=== PATIENT | male | born 1945 | race Caucasian/White ===

== ENCOUNTER 2022-04-24 16:22 | Observation (INO) | payer MEDICARE ==
[2022-04-24 16:59] LABS: Anisocytosis Slight; Basophils # (A) 0.1 k/uL (0-0.2); Basophils % (A) 1 %; Eosinophils # (A) 0.1 k/uL (0-0.7); Eosinophils % (A) 1 %; HCT 39.5 % (39.0-53.0); HGB 12.9 gm/dL (13.0-17.5); Lymphocytes # (A) 2.1 k/uL (1.0-4.8); Lymphocytes % (A) 25 %; MCH 34.7 pg (25.0-35.0); MCHC 32.6 g/dL (31.0-37.0); MCV 106.5 fL (80.0-100.0); Macrocytosis Moderate; Mean Platelet Volume 8.2; Monocytes # (A) 0.5 k/uL (0-1.0); Monocytes % (A) 5 %; Neutrophils # (A) 5.4 k/uL (1.3-7.7); Neutrophils % (A) 64 %; Platelet Count 279 k/uL (150-450); RBC 3.71 m/uL (4.30-5.90); RDW 16.3 % (11.5-15.5); WBC 8.4 k/uL (3.8-10.6)
[2022-04-24 17:08] LABS: Albumin 4.5 g/dL (3.5-5.0); Calcium 9.5 mg/dL (8.4-10.2); Potassium 4.2 mmol/L (3.5-5.1); Total Bilirubin 0.7 mg/dL (0.2-1.3); Total Protein 6.9 g/dL (6.3-8.2)
--- NOTE | 2022-04-24 17:11 | XR ---
EXAMINATION: XR chest 2V DATE AND TIME: 04/24/2022 5:03 PM CLINICAL INDICATION: chest pain TECHNIQUE: PA and lateral COMPARISON: None FINDINGS: The lungs are clear. The pleural spaces are negative. The cardiac silhouette is not enlarged. The remainder of the mediastinal silhouette is unremarkable. The skeletal structures and soft tissues are negative for acute findings. IMPRESSION: NO ACUTE PROCESS.
[2022-04-24 17:15] LABS: Partial Thromboplastin Time 25.2 sec (22.0-30.0); Prothrombin Time 10.5 sec (9.0-12.0)
--- NOTE | 2022-04-24 21:42 | ED ---
Chest Pain HPI - General Chief Complaint: Chest Pain Stated Complaint: Chest pain Time Seen by Provider: 04/24/22 16:43 Source: patient, family, RN notes reviewed Mode of arrival: ambulatory Limitations: no limitations - History of Present Illness Initial Comments: 77-year-old male with a history of heart disease with 2 stents one in 2016 who presents with complaints of intermittent chest tightness anteriorly for past 3 days last episode lasted about 2 hours. He did not take nitroglycerin does have at home. He denies any cough fevers chills he does get a increased heart rate with this. It pain was moderate in severity he describes the later is coming in waves. He is not sure if it feels similar to his previous episodes that he had before stenting. MD Complaint: chest pain Review of Systems ROS Statement: Those systems with pertinent positive or pertinent negative responses have been documented in the HPI. ROS Other: All systems not noted in ROS Statement are negative. EKG Findings - EKG Results: EKG: interpreted by PEDRO, sinus rhythm (Normal sinus rhythm 81. Interval 181 QRS duration 94 QT/QTC 372/[address]-T wave changes no old for comparison at this time.) Past Medical History Past Medical History: Hypertension Additional Past Medical History / Comment(s): Esophegal spasms History of Any Multi-Drug Resistant Organisms: None Reported Past Surgical History: Cholecystectomy Additional Past Surgical History / Comment(s): Cardiac Stents. hernia Past Psychological History: No Psychological Hx Reported Smoking Status: Never smoker Past Alcohol Use History: None Reported Past Drug Use History: None Reported General Exam - General Exam Comments Initial Comments: This is a well-developed well-nourished awake alert oriented 4 male Limitations: no limitations General appearance: alert, in no apparent distress Head exam: Present: atraumatic, normocephalic, normal inspection Eye exam: Present: normal appearance, PERRL, EOMI. Absent: scleral icterus, conjunctival injection, periorbital swelling ENT exam: Present: normal exam, mucous membranes moist Neck exam: Present: normal inspection, full ROM, other (no stridor JVD or bruits). Absent: tenderness, meningismus, lymphadenopathy Respiratory exam: Present: normal lung sounds bilaterally. Absent: respiratory distress, wheezes, rales, rhonchi, stridor Cardiovascular Exam: Present: regular rate, normal rhythm, normal heart sounds. Absent: systolic murmur, diastolic murmur, rubs, gallop, clicks GI/Abdominal exam: Present: soft, normal bowel sounds. Absent: distended, tenderness, guarding, rebound, rigid Extremities exam: Present: normal inspection, full ROM, normal capillary refill. Absent: tenderness, pedal edema, joint swelling, calf tenderness Back exam: Present: normal inspection Neurological exam: Present: alert, oriented X3, CN II-XII intact Psychiatric exam: Present: normal affect, normal mood Skin exam: Present: warm, dry, intact, normal color. Absent: rash Course Vital Signs 04/24/22 16:31 Temperature 98.2 F Pulse Rate 94 Respiratory 20 Rate Blood Pressure 145/71 O2 Sat by Pulse 99 Oximetry - Reevaluation(s) Reevaluation #1: 04/24/22 21:43 Patient did state that after his last catheterization was a partial blockage of one of the arteries it was unreachable for stenting. Reevaluation #2: 04/24/22 21:45 Holiness be made to try to get old charting from the [facility] or the tenting was done Chest Pain MDM - MDM Imaging reviewed no acute findings I did discuss findings with the patient's sister was present also with Dr. Cartwright patient will be admitted with cardiology consultation. The presentation appears be consistent with unstable angina Disposition Clinical Impression: Chest pain, Unstable angina Disposition: ADMITTED IP TO THIS [facility] Condition: Stable Referrals: Nonstaff,Physician [Primary Care Provider] - 1-2 days Decision Date: 04/24/22 Decision Time: 21:30
[2022-04-24] MEDS ORDERED: NITROGLYCERIN SL TABS 0.4 MG TAB SUBLINGUAL PRN (22:08)
[2022-04-24] MEDS ORDERED: HEPARIN SODIUM 1,000 UN/ML (10ML VL) IV ONE (22:08)
[2022-04-24] MEDS ORDERED: HEPARIN SOD,PORK IN 0.45% NACL 25,000 UNIT in 0.45% NACL 1 250ML.BAG IV SCH (22:15)
[2022-04-24] MEDS ORDERED: ALBUTEROL NEBULIZED 2.5 MG/3 ML INHALATION PRN (22:38)
[2022-04-24] MEDS ORDERED: ZOLPIDEM 5 MG TAB PO PRN (23:11)
[2022-04-25] MEDS ORDERED: NITROGLYCERIN OINT 1 INCH/GM PACKET TOPICAL SCH
--- NOTE | 2022-04-25 05:56 | P.HPIM ---
History of Present Illness H&P Date: 04/24/22 Chief Complaint: chest pain 77 year old male with CAD s/p stents 2016 and 2018 patient comes in with 3 days history of chest pain described as retrosternal pain radiating to the shoulder and neck , 8/10 in severity , associated with heart racing and palpitations. these episodes are not related to activity. these episodes usually short lived and goes away slowly , not associated with any nausea or vomting, no SOB, no profuse sweating, no dizziness. denies any recent travel or hospital stay denies any sick contacts. normally prior to these episodes , he was active with no exercise intolerance patient has history of CAD with stents 2016 and 2018 workup inthe ED was negative patient denies tobacco smoking, illicit drugs or alcohol use Review of Systems Pertinent positives as noted in HPI. 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 hernia Past Psychological History: No Psychological Hx Reported Smoking Status: Never smoker Past Alcohol Use History: None Reported Past Drug Use History: None Reported - Past Family History family Family Medical History: Coronary Artery Disease (CAD) Medications and Allergies Home Medications Medication Instructions Recorded Confirmed Type Albuterol Sulfate [Proair Hfa] 1 - 2 puff INHALATION RT-Q6H PRN 04/24/22 04/24/22 History Ascorbic Acid [Vitamin C] 500 mg PO DAILY 04/24/22 04/24/22 History Aspirin EC [Ecotrin Low Dose] 81 mg PO DAILY 04/24/22 04/24/22 History Atorvastatin Calcium [Lipitor] 40 mg PO DAILY 04/24/22 04/24/22 History Cholecalciferol [Vitamin D3 (25 25 mcg PO DAILY 04/24/22 04/24/22 History Mcg = 1000 Iu)] Cyanocobalamin [Vitamin B-12] 500 mcg PO DAILY 04/24/22 04/24/22 History Isosorbide Mononitrate ER [Imdur] 30 mg PO DAILY 04/24/22 04/24/22 History Metoprolol Succinate (ER) [Toprol 25 mg PO BID 04/24/22 04/24/22 History Xl] Multivitamins, Thera [Multivitamin 1 tab PO DAILY 04/24/22 04/24/22 History (formulary)] Nitroglycerin 0.3mg Tabs 0.3 mg SL Q5M PRN 04/24/22 04/24/22 History Omeprazole [PriLOSEC] 20 mg PO DAILY 04/24/22 04/24/22 History Zolpidem [Ambien] 10 mg PO HS 04/24/22 04/24/22 History allopurinoL [Zyloprim] 100 mg PO DAILY 04/24/22 04/24/22 History amLODIPine [Norvasc] 2.5 mg PO BID 04/24/22 04/24/22 History Allergies Allergy/AdvReac Type Severity Reaction Status Date / Time No Known Allergies Allergy Verified 04/24/22 22:28 Physical Exam Vitals: Vital Signs Temp Pulse Resp BP Pulse Ox 04/24/22 16:31 98.2 F 94 20 145/71 99 Intake and Output 04/24/22 04/24/22 04/25/22 14:59 22:59 06:59 Other: Weight 88.451 kg Constitutional: No acute distress, conversant, pleasant Eyes: Anicteric sclerae, moist conjunctiva, Pupils equal round reactive to light ENMT: NC/AT Oropharynx clear, no erythema, or exudates Neck: Supple, FROM, no masses, or JVD No carotid bruits No thyromegaly Lungs: Clear to auscultation Clear to percussion Normal respiratory effort, no accessory muscle use Cardiovascular: Heart regular in rate and rhythm, No murmurs, gallops, or rubs No peripheral edema Abdominal: Soft Nontender, no guarding, rebound or rigidity Abdomen moving with respiration Normoactive bowel sounds No hepatomegaly, No splenomegaly No palpable mass No abdominal wall hernia noted Skin: Normal temperature, tone, texture, turgor No induration No subcutaneous nodules No rash, lesions No ulcers Extremities: No digital cyanosis No clubbing Pedal pulses intact and symmetrical Radial pulses intact and symmetrical No calf tenderness Psychiatric: Alert and oriented to person, place and time Appropriate affect fair judgement Neuro Muscles Strength 5/5 in all 4 extremities Sensation to light touch grossly present throughout Cranial nerves II-XII grossly intact No focal sensory deficits Lymphatics: no palpable cervical or supraclavicular , or inguinal lymph nodes Results CBC & Chem 7: 04/24/22 16:51 04/24/22 16:51 Labs: Abnormal Lab Results - Last 24 Hours (Table) 04/24/22 04/24/22 Range/Units 16:51 16:51 RBC 3.71 L (4.30-5.90) m/uL Hgb 12.9 L (13.0-17.5) gm/dL MCV 106.5 H (80.0-100.0) fL RDW 16.3 H (11.5-15.5) % Sodium 134 L (137-145) mmol/L Glucose 160 H (74-99) mg/dL Assessment and Plan Assessment: atypical chest pain rule out ACS EKG no acute changes CXR no acute pathology trops negative X2 cardiac nurse specialist monitor vital signs ASA, statin cardiology consult A1c, lipid panel , TSH pain control patient was initiated on heparin drip in the ED for ACS DVT PPX heparin drip per ACS full code
[2022-04-25] MEDS ORDERED: PANTOPRAZOLE 40 MG TABLET PO SCH (07:30)
[2022-04-25 07:57] LABS: Partial Thromboplastin Time 28.3 sec (22.0-30.0); Prothrombin Time 11.1 sec (9.0-12.0)
[2022-04-25] MEDS ORDERED: DOBUTamine DRIP for NUC MED 500 MG in DEXTROSE/WATER 1 250ML.BAG IV PRN (08:47)
[2022-04-25] MEDS ORDERED: MULTIVITAMINS, THERA 1 EACH TAB PO SCH (09:00)
[2022-04-25] MEDS ORDERED: ATORVASTATIN 40 MG TAB PO SCH (09:00)
[2022-04-25] MEDS ORDERED: ASCORBIC ACID 500 MG TAB PO SCH (09:00)
[2022-04-25] MEDS ORDERED: METOPROLOL SUCCINATE (ER) 25 MG TAB.ER.24H PO SCH (09:00)
[2022-04-25] MEDS ORDERED: allopurinoL 100 MG TAB PO SCH (09:00)
[2022-04-25] MEDS ORDERED: ISOSORBIDE MONONITRATE ER 30 MG TAB.ER.24H PO SCH (09:00)
[2022-04-25] MEDS ORDERED: CHOLECALCIFEROL 25 MCG (1000 IU) TABLET PO SCH (09:00)
[2022-04-25] MEDS ORDERED: amLODIPine 2.5 MG TAB PO SCH (09:00)
[2022-04-25] MEDS ORDERED: CYANOCOBALAMIN 500 MCG TAB PO SCH (09:00)
[2022-04-25] MEDS ORDERED: ASPIRIN 325 MG TAB PO SCH (09:00)
--- NOTE | 2022-04-25 10:11 | P.CRDCN ---
History of Present Illness History of present illness: HISTORY OF PRESENTING ILLNESS This is a pleasant 77-year-old male past medical history significant for coronary artery disease status post PCI in 2017 and 2019, hypertension, esophageal spasms, dyslipidemia. He follows in the office with Dr. Laquita Kilpatrick in [place], [place]. We have been asked to see in consultation for chest pain. Patient presents with intermittent chest discomfort, described as tightness. Is located in his upper chest and neck area. It is intermittent, nonexertional, nonradiating. He does have associated palpitations. It does not occur with activities. No specific aggravating or alleviating factors. He does state that over the past couple days he has not been feeling well. He describes his chest pain different from his prior stent placements. He denies any shortness of breath, lightheadedness, dizziness, syncope or near syncope, diaphoresis, nausea, vomiting. He currently has no discomfort. He states that recently with his doctor he's been worked up to rule out multiple myeloma, he underwent a bone marrow biopsy secondary to anemia and protein in his urine and blood. He states that he did have a stress test with his trim setter helper around [facility] of this year, no cardiac cath after this test. Currently he is chest pain free. DIAGNOSTICS * EKG reveals sinus rhythm, heart rate 81, no acute STT wave abnormalities chest ischemia. * Telemetry tracings indicate sinus mechanism. * Chest xray no acute cardiopulmonary process * Laboratory reviewed, troponin negative 3, d-dimer negative, WBC 8.4, hemoglobin 12.9, platelets 279, sodium 134, potassium 4.2, BUN 16, serum creatinine 0.9, proBNP 166 * Current home cardiac medications include amlodipine 2.5 mg twice a day, metoprolol 1625 mg twice a day, Imdur 30 mg daily, atorvastatin 40 mg daily. REVIEW OF SYSTEMS At the time of my exam: CONSTITUTIONAL: Denies fever or chills. CARDIOVASCULAR: + chest pain, Denies shortness of breath, orthopnea, PND +palpitations. RESPIRATORY: Denies cough. GASTROINTESTINAL: Denies abdominal pain, diarrhea, constipation, nausea or vomiting. MUSCULOSKELETAL: Denies myalgias. NEUROLOGIC: Denies numbness, tingling, headacbe or weakness. ENDOCRINE: Denies fatigue, weight change, polydipsia or polyurina. GENITOURINARY: Denies burning, hematuria or urgency with micturation. HEMATOLOGIC: + history of anemia PHYSICAL EXAMINATION Blood pressure 128/73, heart rate 79, afebrile, saturation 100% on room air CONSTITUTIONAL: No apparent distress. HEENT: Head is normocephalic. Pupils are equal, round. Sclerae anicteric. Mucous membranes of the mouth are moist. No JVD. No carotid bruit. CHEST EXAMINATION: Lungs are clear to auscultation. No chest wall tenderness is noted on palpation or with deep breathing. HEART EXAMINATION: Regular rate and rhythm. S1, S2 heard. No murmurs, gallops or rub. ABDOMEN: Soft, nontender. Positive bowel sounds. EXTREMITIES: 2+ peripheral pulses, no lower extremity edema and no calf tenderness. NEUROLOGIC EXAMINATION: Patient is awake, alert and oriented x3. ASSESSMENT Chest pain, atypical, acute coronary syndrome has been ruled out History of coronary disease status post PCI in 2016 2018. Patient Hypertension Dyslipidemia History of esophageal spasms PLAN Plan for dobutamine stress echocardiogram test today Attempted to receive records from patient's trim setter helper Dr. Laquita Kilpatrick in [place], [place] office. However, office is closed on Fridays If Stress test is negative, no further inpatient workup from cardiology perspective. Nurse practitioner note has been reviewed by physician. Signing provider agrees with the documented findings, assessment, and plan of care. Past Medical History Past Medical History: Hypertension Additional Past Medical History / Comment(s): Esophegal spasms History of Any Multi-Drug Resistant Organisms: None Reported Past Surgical History: Cholecystectomy Additional Past Surgical History / Comment(s): Cardiac Stents. hernia Past Psychological History: No Psychological Hx Reported Smoking Status: Never smoker Past Alcohol Use History: None Reported Past Drug Use History: None Reported - Past Family History family Family Medical History: Coronary Artery Disease (CAD) Medications and Allergies Home Medications Medication Instructions Recorded Confirmed Type Albuterol Sulfate [Proair Hfa] 1 - 2 puff INHALATION RT-Q6H PRN 04/24/22 04/24/22 History Ascorbic Acid [Vitamin C] 500 mg PO DAILY 04/24/22 04/24/22 History Aspirin EC [Ecotrin Low Dose] 81 mg PO DAILY 04/24/22 04/24/22 History Atorvastatin Calcium [Lipitor] 40 mg PO DAILY 04/24/22 04/24/22 History Cholecalciferol [Vitamin D3 (25 25 mcg PO DAILY 04/24/22 04/24/22 History Mcg = 1000 Iu)] Cyanocobalamin [Vitamin B-12] 500 mcg PO DAILY 04/24/22 04/24/22 History Isosorbide Mononitrate ER [Imdur] 30 mg PO DAILY 04/24/22 04/24/22 History Metoprolol Succinate (ER) [Toprol 25 mg PO BID 04/24/22 04/24/22 History Xl] Multivitamins, Thera [Multivitamin 1 tab PO DAILY 04/24/22 04/24/22 History (formulary)] Nitroglycerin 0.3mg Tabs 0.3 mg SL Q5M PRN 04/24/22 04/24/22 History Omeprazole [PriLOSEC] 20 mg PO DAILY 04/24/22 04/24/22 History Zolpidem [Ambien] 10 mg PO HS 04/24/22 04/24/22 History allopurinoL [Zyloprim] 100 mg PO DAILY 04/24/22 04/24/22 History amLODIPine [Norvasc] 2.5 mg PO BID 04/24/22 04/24/22 History Allergies Allergy/AdvReac Type Severity Reaction Status Date / Time No Known Allergies Allergy Verified 04/24/22 22:28 Physical Exam Vitals: Vital Signs Temp Pulse Resp BP Pulse Ox 04/25/22 06:33 74 15 141/69 100 04/24/22 16:31 98.2 F 94 20 145/71 99 Intake and Output 04/24/22 04/25/22 04/25/22 22:59 06:59 14:59 Other: Weight 88.451 kg Results 04/24/22 16:51 04/24/22 16:51 Cardiac Enzymes 04/24/22 04/24/22 04/24/22 Range/Units 16:51 16:51 22:47 AST 43 (17-59) U/L Troponin I <0.012 <0.012 (0.000-0.034) ng/mL 04/25/22 Range/Units 00:49 AST (17-59) U/L Troponin I <0.012 (0.000-0.034) ng/mL Coagulation 04/24/22 Range/Units 16:51 PT 10.5 (9.0-12.0) sec APTT 25.2 (22.0-30.0) sec CBC 04/24/22 Range/Units 16:51 WBC 8.4 (3.8-10.6) k/uL RBC 3.71 L (4.30-5.90) m/uL Hgb 12.9 L (13.0-17.5) gm/dL Hct 39.5 (39.0-53.0) % Plt Count 279 (150-450) k/uL Comprehensive Metabolic Panel 04/24/22 Range/Units 16:51 Sodium 134 L (137-145) mmol/L Potassium 4.2 (3.5-5.1) mmol/L Chloride 98 (98-107) mmol/L Carbon Dioxide 24 (22-30) mmol/L BUN 16 (9-20) mg/dL Creatinine 0.97 (0.66-1.25) mg/dL Glucose 160 H (74-99) mg/dL Calcium 9.5 (8.4-10.2) mg/dL AST 43 (17-59) U/L ALT 31 (4-49) U/L Alkaline Phosphatase 67 (38-126) U/L Total Protein 6.9 (6.3-8.2) g/dL Albumin 4.5 (3.5-5.0) g/dL Current Medications Generic Name Dose Route Start Last Admin Trade Name Freq PRN Reason Stop Dose Admin Albuterol Sulfate 2.5 mg 04/24/22 22:38 Albuterol Nebulized 2.5 Mg/3 Ml INHALATION RT-Q6H PRN Shortness Of Breath Allopurinol 100 mg 04/25/22 09:00 Allopurinol 100 Mg Tab PO DAILY [facility] Amlodipine Besylate 2.5 mg 04/25/22 09:00 Amlodipine 2.5 Mg Tab PO BID [facility] Ascorbic Acid 500 mg 04/25/22 09:00 Ascorbic Acid 500 Mg Tab PO DAILY [facility] Aspirin 325 mg 04/25/22 09:00 Aspirin 325 Mg Tab PO DAILY [facility] Atorvastatin Calcium 40 mg 04/25/22 09:00 Atorvastatin 40 Mg Tab PO DAILY [facility] Cholecalciferol 25 mcg 04/25/22 09:00 Cholecalciferol 25 Mcg (1000 Iu) Tablet PO DAILY [facility] Cyanocobalamin 500 mcg 04/25/22 09:00 Cyanocobalamin 500 Mcg Tab PO DAILY [facility] Heparin Sodium/Sodium Chloride 250 mls @ 10 mls/hr 04/24/22 22:15 04/24/22 23:33 25,000 unit/ Sodium Chloride IV 11.3057 units/kg/hr .Q24H [place] 10 mls/hr Administration Protocol 11.3057 UNITS/KG/HR Isosorbide Mononitrate 30 mg 04/25/22 09:00 Isosorbide Mononitrate Er 30 Mg Tab.Er.24h PO DAILY [facility] Metoprolol Succinate 25 mg 04/25/22 09:00 Metoprolol Succinate (Er) 25 Mg Tab.Er.24h PO BID [facility] Multivitamins 1 each 04/25/22 09:00 Multivitamins, Thera 1 Each Tab PO DAILY [facility] Nitroglycerin 0.4 mg 04/24/22 22:08 Nitroglycerin Sl Tabs 0.4 Mg Tab SUBLINGUAL Q5M PRN Chest Pain Pantoprazole Sodium 40 mg 04/25/22 07:30 Pantoprazole 40 Mg Tablet PO AC-BRKFST [facility] Zolpidem Tartrate 10 mg 04/24/22 23:11 04/24/22 23:34 Zolpidem 5 Mg Tab PO 10 mg HS PRN Administration Insomnia Intake and Output 04/24/22 04/25/22 04/25/22 22:59 06:59 14:59 Other: Weight 88.451 kg 04/24/22 16:51 04/24/22 16:51
[2022-04-25 11:46] LABS: Chol/HDL Ratio 2.81 Ratio; LDL Cholesterol,Calculated 41.9 mg/dL (0.0-131.0)
[2022-04-25] MEDS ORDERED: DOBUTamine DRIP for NUC MED 500 MG/250 ML BAG IV ONE (12:10)
--- NOTE | 2022-04-25 12:37 | CA ---
Dobutamine Stress Echocardiogram Report Juan Soria Age: 77 Gender: M : 1945 Exam Date: 04/25/2022 11:54 Exam Location: [facility] Ordering Physician: Debi Figueroa Referring Physician: , Concrete Boom Pump Operator: Berry Penny Technologist: Ht (in): 72 Wt (lb): 192 Procedure CPT: Indication: Chest Pain ICD-9 Codes: Rhythm: Patient History: Cardiac Medications: Medications in past 24 hours: Contrast: Total Dose (mL): Stress Results Protocol: Dobutamine Peak Dose (???g/kg/min): Duration (min:sec): Atropine:(mg) Target HR: 122 Double Product: Resting HR: 80 Resting BP: 123 / 67 Peak HR: 133 Peak BP: / 60 Max Predicted HR: 143 93 % Max Predicted HR Stress Summary: BP Response: Reason for Termination: Exceeded target heart rate (85% max predicted) Cardiac Symptoms: NO SYPTOMS NO SYMPTOMS ECG Analysis Resting EKG: Normal sinus rhythm, normal ECG Stress EKG: No abnormal ST/T wave changes with exercise Arrhythmia: None Echo Analysis Base Echo Analysis: Normal baseline echocardiogram Low Echo Anaylsis: No evidence of segmental wall motion abnormality Peak Echo Analysis: Normal response to Dobutamine. Recovery Echo: No echocardiographic evidence of myocardial ischemia. MEASUREMENTS (Male/Female) Normal Values CONCLUSIONS 1. Normal electrocardiographic response to dobutamine infusion 2. Normal stress echocardiogram with no evidence of stress- induced ischemia Dr. Gabino Pulliam MD (Electronically Signed) Final Date: 25 April 2022 12:36
[2022-04-25 12:38] VITALS: RESP 16
[2022-04-25 14:00] VITALS: BP 130/69; PULSE 80; TEMP 97.5
--- NOTE | 2022-04-25 14:11 | P.DS ---
Providers Date of admission: 04/24/22 22:08 Expected date of discharge: 04/25/22 Attending physician: Dasia Crockett MD Primary care physician: Physician Nonstaff Hospital Course: 77 year old male with CAD s/p stents 2016 and 2018 patient comes in with 3 days history of chest pain described as retrosternal pain radiating to the shoulder and neck , 8/10 in severity , associated with heart racing and palpitations. these episodes are not related to activity. these episodes usually short lived and goes away slowly , not associated with any nausea or vomting, no SOB, no profuse sweating, no dizziness. denies any recent travel or hospital stay denies any sick contacts. normally prior to these episodes , he was active with no exercise intolerance patient has history of CAD with stents 2016 and 2018 workup inthe ED was negative patient denies tobacco smoking, illicit drugs or alcohol use Troponins were trended and ACS was ruled out. Cardiology was consulted and recommended a stress test. Stress test was negative. Patient was cleared for discharge. Patient was seen and examined prior to discharge. He reported complete resolution of chest pain. He denied any symptoms. General: [non toxic], [no distress], [appears at stated age] Derm: [warm], [dry] Head: [atraumatic], [normocephalic], [symmetric] Eyes: [EOMI], [no lid lag], [anicteric sclera] Mouth: [no lip lesion], [mucus membranes moist] Cardiovascular: [S1S2 reg], [no murmur] Lungs: [CTA bilateral], [no rhonchi, no rales] , [no accessory muscle use] Ext: [no gross muscle atrophy], [no edema], [no contractures] Neuro: [no focal neuro deficits] Psych: [Alert], [oriented], [appropriate affect] Discharge diagnosis: Chest pain History of CAD with stenting Hypertension GERD Dyslipidemia Pertinent Studies: Stress test CXR Patient Condition at Discharge: Stable Plan - Discharge Summary New Discharge Prescriptions: Continue Zolpidem [Ambien] 10 mg PO HS Omeprazole [PriLOSEC] 20 mg PO DAILY Albuterol Sulfate [Proair Hfa] 1 - 2 puff INHALATION RT-Q6H PRN PRN Reason: Shortness Of Breath allopurinoL [Zyloprim] 100 mg PO DAILY Metoprolol Succinate (ER) [Toprol XL] 25 mg PO BID Atorvastatin Calcium [Lipitor] 40 mg PO DAILY Multivitamins, Thera [Multivitamin (formulary)] 1 tab PO DAILY Cyanocobalamin [Vitamin B-12] 500 mcg PO DAILY Cholecalciferol [Vitamin D3 (25 Mcg = 1000 Iu)] 25 mcg PO DAILY Ascorbic Acid [Vitamin C] 500 mg PO DAILY amLODIPine [Norvasc] 2.5 mg PO BID Isosorbide Mononitrate ER [Imdur] 30 mg PO DAILY Nitroglycerin 0.3mg Tabs 0.3 mg SL Q5M PRN PRN Reason: Chest Pain Aspirin EC [Ecotrin Low Dose] 81 mg PO DAILY Discharge Medication List Albuterol Sulfate [Proair Hfa] 1 - 2 puff INHALATION RT-Q6H PRN 04/24/22 [History] Ascorbic Acid [Vitamin C] 500 mg PO DAILY 04/24/22 [History] Aspirin EC [Ecotrin Low Dose] 81 mg PO DAILY 04/24/22 [History] Atorvastatin Calcium [Lipitor] 40 mg PO DAILY 04/24/22 [History] Cholecalciferol [Vitamin D3 (25 Mcg = 1000 Iu)] 25 mcg PO DAILY 04/24/22 [History] Cyanocobalamin [Vitamin B-12] 500 mcg PO DAILY 04/24/22 [History] Isosorbide Mononitrate ER [Imdur] 30 mg PO DAILY 04/24/22 [History] Metoprolol Succinate (ER) [Toprol XL] 25 mg PO BID 04/24/22 [History] Multivitamins, Thera [Multivitamin (formulary)] 1 tab PO DAILY 04/24/22 [History] Nitroglycerin 0.3mg Tabs 0.3 mg SL Q5M PRN 04/24/22 [History] Omeprazole [PriLOSEC] 20 mg PO DAILY 04/24/22 [History] Zolpidem [Ambien] 10 mg PO HS 04/24/22 [History] allopurinoL [Zyloprim] 100 mg PO DAILY 04/24/22 [History] amLODIPine [Norvasc] 2.5 mg PO BID 04/24/22 [History] Follow up Appointment(s)/Referral(s): Nonstaff,Physician [Primary Care Provider] - 1-2 days Josue Sesay MD [STAFF PHYSICIAN] - 1 Week Activity/Diet/Wound Care/Special Instructions: Cardiac Follow-up with your PCP within 1-2 days of discharge. Follow-up with cardiology within 1 week of discharge. Take all medications as advised. Come back to the ED for worsening chest pain, shortness of breath, palpitations or lightheadedness. Discharge Disposition: HOME SELF-CARE
--- NOTE | 2022-04-25 18:30 | CA ---
Transthoracic Echo Report Name: Juan Soria Age: 77 Gender: M : 1945 Exam Date: 04/25/2022 08:58 Exam Location: [facility] Ht (in): 72 Wt (lb): 165 Ordering Physician: Debi Figueroa Attending/Referring Phys: [employer] Setter Sandra Gamez RDCS Procedure CPT: Indications: Chest Pain Cardiac Hx: Technical Quality: Good Contrast 1: Total Dose (mL): Contrast 2: Total Dose (mL): MEASUREMENTS (Male / Female) Normal Values 2D ECHO LV Diastolic Diameter PLAX 3.7 cm 4.2 - 5.9 / 3.9 - 5.3 cm LV Systolic Diameter PLAX 3.0 cm IVS Diastolic Thickness 1.2 cm 0.6 - 1.0 / 0.6 - 0.9 cm LVPW Diastolic Thickness 1.4 cm 0.6 - 1.0 / 0.6 - 0.9 cm LV Relative Wall Thickness 0.7 RV Internal Dim ED PLAX 3.0 cm LA Systolic Diameter LX 3.4 cm 3.0 - 4.0 / 2.7 - 3.8 cm M-MODE Aortic Root Diameter MM 3.5 cm LA Systolic Diameter MM 3.0 cm LA Ao Ratio MM 0.9 AV Cusp Separation MM 1.7 cm DOPPLER MV Area PHT 2.4 cm??? Mitral E Point Velocity 42.4 cm/s Mitral A Point Velocity 77.5 cm/s Mitral E to A Ratio 0.5 MV Deceleration Time 316.8 ms MV E' Velocity 6.7 cm/s Mitral E to MV E' Ratio 6.3 TR Peak Velocity 242.5 cm/s TR Peak Gradient 23.5 mmHg Right Ventricular Systolic Press 28.5 mmHg FINDINGS Left Ventricle Left ventricular ejection fraction is estimated at 55-60 %. Mildly increased left ventricular wall . Thickness.left ventricular cavity size normal. Right Ventricle Normal right ventricular size and function. Right Atrium Normal right atrial size. Left Atrium Normal left atrial size. Mitral Valve Mild mitral regurgitation.mitral annular calcification. Aortic Valve Trileaflet aortic valve.aortic valve sclerosis. Tricuspid Valve Structurally normal tricuspid valve. Trace to mild tricuspid regurgitation. Pulmonic Valve Pulmonic valve not well visualized. Pericardium Normal pericardium. Aorta Normal size aortic root and proximal ascending aorta. CONCLUSIONS 1. Normal left ventricle size and systolic function 2. Mild mitral and tricuspid regurgitation Previewed by: Dr. Gabino Pulliam MD (Electronically Signed) Final Date: 25 April 2022 18:29
[2022-04-25] MEDS ORDERED: ZOLPIDEM 5 MG TAB PO SCH (21:00)
[2022-04-26] MEDS ORDERED: ASPIRIN 81 MG PO SCH (09:00)
== END 2022-04-25 15:38 | disposition home or self-care (01) ==
LOC: EC 16:22 → 3SCARD 22:08 → 6NMEDSUR 04-25 11:18
PROVIDERS: ADMIT Internal Medicine; ATTEND Internal Medicine
DX: R07.89 Other chest pain (principal); I25.10 Atherosclerotic heart disease of native coronary artery without angina pectoris; I10 Essential (primary) hypertension; E78.5 Hyperlipidemia, unspecified; R00.2 Palpitations; R00.0 Tachycardia, unspecified; K21.9 Gastro-esophageal reflux disease without esophagitis; Z79.82 Long term (current) use of aspirin; Z79.899 Other long term (current) drug therapy; Z90.49 Acquired absence of other specified parts of digestive tract; Z95.5 Presence of coronary angioplasty implant and graft; Z87.19 Personal history of other diseases of the digestive system; Z98.890 Other specified postprocedural states; Z82.49 Family history of ischemic heart disease and other diseases of the circulatory system
CPT/HCPCS: 96376; 96365; 96366; 99285; 36415; 93005; 93306; 93351; 85379; 83880; 80061; 80053; 83690; 83735; 84484 ×2; 85025; 85610 ×2; 85730 ×2; 71046; G0378 ×3; J1250; J1644 ×2

== ENCOUNTER 2023-03-28 16:55 | Observation (INO) | payer MEDICARE ==
[2023-03-28] MEDS ORDERED: SODIUM CHLORIDE 0.9% 1,000 ML IV STA (17:40)
[2023-03-28] MEDS ORDERED: NITROGLYCERIN SL TABS 0.4 MG TAB SUBLINGUAL STA (17:40)
--- NOTE | 2023-03-28 18:24 | ED ---
General Adult HPI - General Chief complaint: Chest Pain Stated complaint: Chest Pressure,SOB Time Seen by Provider: 03/28/23 17:32 Source: patient, family, RN notes reviewed, old records reviewed Mode of arrival: wheelchair Limitations: no limitations - History of Present Illness Initial comments: Patient is a 78-year-old male who presents emergency Department complaining of multiple complaints of of all been ongoing for at least 4-5 days. Patient's primary complaint is chest pressure which is been ongoing for the last 4-5 days more or less constant. Associated with some mild dyspnea. Denies any fevers or chills or cough. Denies any abdominal pain, nausea, vomiting. Denies any urinary complaints. Is also complaining of worsening acute on chronic bilateral lower extremity paresthesias and neuropathy. Does have a history of peripheral neuropathy and typically extends from the toes to just distal bilateral knees. States it is above the knees now. It is symmetrical. No known onset. Patient is also endorsing some anxiety. Patient is also endorsing a lightheadedness sensation. He also has a history of trigeminal neuralgia. Is unknown if all the symptoms are connected. Seems to be anxious regarding these. States he feels somewhat weak as well. Unknown what is causing all the symptoms. Presents for further evaluation at this time. - Related Data Home Medications Medication Instructions Recorded Confirmed Albuterol Sulfate [Proair Hfa] 1 - 2 puff INHALATION RT-Q6H PRN 04/24/22 03/28/23 Aspirin EC [Ecotrin Low Dose] 81 mg PO DAILY 04/24/22 03/28/23 Atorvastatin Calcium [Lipitor] 40 mg PO DAILY 04/24/22 03/28/23 Cholecalciferol [Vitamin D3 (25 50 mcg PO DAILY 04/24/22 03/28/23 Mcg = 1000 Iu)] Isosorbide Mononitrate ER [Imdur] 30 mg PO DAILY 04/24/22 03/28/23 Metoprolol Succinate (ER) [Toprol 25 mg PO BID 04/24/22 03/28/23 XL] Nitroglycerin 0.3mg Tabs 0.3 mg SL Q5M PRN 04/24/22 03/28/23 Omeprazole [PriLOSEC] 20 mg PO DAILY 04/24/22 03/28/23 allopurinoL [Zyloprim] 100 mg PO DAILY 04/24/22 03/28/23 amLODIPine [Norvasc] 5 mg PO HS 04/24/22 03/28/23 Acetaminophen Tab [Tylenol Tab] 500 - 1,000 mg PO Q6HR PRN 03/28/23 03/28/23 Celecoxib [CeleBREX] 200 mg PO DIRECTED PRN 03/28/23 03/28/23 Colchicine 0.6 mg PO DIRECTED PRN 03/28/23 03/28/23 Cyanocobalamin (Vitamin B-12) 1,000 mcg PO DAILY 03/28/23 03/28/23 [Vitamin B-12] Gabapentin [Neurontin] 100 mg PO DIRECTED PRN 03/28/23 03/28/23 Hyoscyamine Sulfate [Levsin] 0.125 mg PO DIRECTED PRN 03/28/23 03/28/23 Vitamin C 600mg 600 mg PO DAILY 03/28/23 03/28/23 Zolpidem [Ambien] 5 mg PO HS 03/28/23 03/28/23 carBAMazepine [TEGretol] 100 mg PO BID PRN 03/28/23 03/28/23 Allergies Allergy/AdvReac Type Severity Reaction Status Date / Time No Known Allergies Allergy Verified 03/28/23 20:05 Review of Systems ROS Statement: Those systems with pertinent positive or pertinent negative responses have been documented in the HPI. Review of Systems: CONST: Denies fever EYES: Denies blurry vision ENT: Denies nasal congestion C/V: Endorses chest pressure RESP: Denies shortness of breath GI: Denies abdominal pain : Denies dysuria SKIN: Denies rash. MSK: Denies joint pain. NEURO: Endorses chronic lower extremity neuropathy ROS Other: All systems not noted in ROS Statement are negative. Past Medical History Past Medical History: Hypertension Additional Past Medical History / Comment(s): Esophegal spasms TMJ History of Any Multi-Drug Resistant Organisms: None Reported Past Surgical History: Cholecystectomy Additional Past Surgical History / Comment(s): Cardiac Stents. hernia Past Psychological History: No Psychological Hx Reported Smoking Status: Never smoker Past Alcohol Use History: None Reported Past Drug Use History: None Reported - Past Family History family Family Medical History: Coronary Artery Disease (CAD) General Exam - General Exam Comments Initial Comments: General: Appears in no acute distress. HEAD: Normal with no signs of head trauma. EYES: PERRLA, EOMI, conjunctiva normal, no discharge. Pupils are 3 mm and equal bilaterally. ENT: Hearing grossly intact, normal oropharynx. RESPIRATORY: Clear breath sounds bilaterally. No wheezes, rales, or rhonchi. C/V: Regular rate and rhythm. S1 and S2 auscultated, no edema, peripheral pulses 2+ and intact throughout ABD: Abd is soft, nontender, nondistended EXT: Normal range of motion, no obvious deformity SKIN: No rashes or lesions observed on exposed skin. NEURO: Alert and oriented x 4. Cranial nerves II-XII intact. No focal sensory or strength deficits. GCS of 15. NIH of 0. Limitations: no limitations Course Vital Signs 03/28/23 03/28/23 03/28/23 17:01 18:05 19:43 Temperature 97.6 F Pulse Rate 79 77 73 Pulse Rate [ Director Music ] Respiratory 18 20 18 Rate Blood Pressure 127/68 111/64 122/65 O2 Sat by Pulse 100 99 99 Oximetry 03/28/23 20:00 Temperature Pulse Rate Pulse Rate [ 73 Director Music ] Respiratory Rate Blood Pressure O2 Sat by Pulse Oximetry Medical Decision Making - Medical Decision Making Was pt. sent in by a medical professional or institution (, PA, SUPERVISOR TH[employer]ING [employer]MENT, urgent care, hospital, or group home...) When possible be specific @ -No Did you speak to anyone other than the patient for history (EMS, parent, family, police, friend...)? What history was obtained from this source @ -No Did you review nursing and triage notes (agree or disagree)? Why? @ -I reviewed and agree with nursing and triage notes Were old charts reviewed (outside hosp., previous admission, EMS record, old EKG, old radiological studies, urgent care reports/EKG's, group home records)? Report findings @ -Charts reviewed from March 2022 Differential Diagnosis (chest pain, altered mental status, abdominal pain women, abdominal pain men, vaginal bleeding, weakness, fever, dyspnea, syncope, headache, dizziness, GI bleed, back pain, seizure, CVA, palpatations, mental health, musculoskeletal)? @ -Differential Chest Pain: Stable Angina, Unstable Angina, STEMI, NSTEMI Aortic Dissection, Pneumothorax, Musculoskeletal, Esophageal Spasm GERD, Cholecystitis, Pancreatitis, Zoster, this is not meant to be an all-inclusive list. EKG interpreted by me (3pts min.). @ -As above X-rays interpreted by me (1pt min.). @ -Chest x-ray reveals no obvious acute cardio pulmonary process. CT interpreted by me (1pt min.). @ -CT brain reveals no obvious acute intracranial process or injury. U/S interpreted by me (1pt. min.). @ -None done What testing was considered but not performed or refused? (CT, X-rays, U/S, labs)? Why? @ -None What meds were considered but not given or refused? Why? @ -None Did you discuss the management of the patient with other professionals (professionals i.e. DrRodolfo, PA, [employer]PERVIS[employer], lab, RT, psych nurse, social media marketing manager, trace clerk, teacher, school resource officer, case manager specialist)? Give summary @ -Discussed with the admitting physician, city call Dr. Templeton who accepted the patient. Was smoking cessation discussed for >3mins.? @ -No Was critical care preformed (if so, how long)? @ -No Were there social determinants of health that impacted care today? How? (Homelessness, low income, unemployed, alcoholism, drug addiction, transportation, low edu. Level, literacy, decrease access to med. care, residential, rehab)? @ -No Was there de-escalation of care discussed even if they declined (Discuss DNR or withdrawal of care, Hospice)? DNR status @ -No What co-morbidities impacted this encounter? (DM, HTN, Smoking, COPD, CAD, Cancer, CVA, ARF, Chemo, Hep., AIDS, mental health diagnosis, sleep apnea, morbid obesity)? @ -None Was patient admitted / discharged? Hospital course, mention meds given and rout e, prescriptions, significant lab abnormalities, going to OR and other pertinent info. @ -Based on the patient's presentation and physical exam, I am concerned for possible cardiopulmonary etiology for his current symptoms. Cannot rule out neuralgic cause. We will obtain CT brain, as well as cardiac workup. Patient was in agreement this plan. Vital signs within normal limits. We'll attempt nitroglycerin tablets for his chest discomfort. Patient was in agreement with this plan. Cannot rule out anxiety as a potential cause for his symptoms. EKG shows no signs of acute ischemia. Imaging is unremarkable. Patient's labs are also relatively unremarkable. Patient does have a history of chronic anemia. D-dimer is within normal limits. Troponin is undetectable. On reevaluation, patient states he feels somewhat improved but the nitroglycerin did not have any effect on his chest discomfort. We discussed his workup. I believe we should admit him to the hospital for cardiac rule out due to his heart score being moderate. He was in agreement with this plan. Neurology will be consulted as well cardiology. We will trend his troponin. I spoke with the admitting physician, Dr. Templeton who accepted the patient. Patient was given an aspirin. Undiagnosed new problem with uncertain prognosis? @ -No Drug Therapy requiring intensive monitoring for toxicity (Heparin, Nitro, Insulin, Cardizem)? @ -No Were any procedures done? @ -No Diagnosis/symptom? @ -Chest pain Acute, or Chronic, or Acute on Chronic? @ -Acute Uncomplicated (without systemic symptoms) or Complicated (systemic symptoms)? @ -Uncomplicated Side effects of treatment? @ -No Exacerbation, Progression, or Severe Exacerbation? @ -No Poses a threat to life or bodily function? How? (Chest pain, [place], [place], pneumonia, PE, COPD, DKA, ARF, appy, cholecystitis, CVA, Diverticulitis, Homicidal, Suicidal, threat to staff... and all critical care pts) @ -yes Diagnosis/symptom? @ -Peripheral neuropathy Acute, or Chronic, or Acute on Chronic? @ -Acute on chronic Uncomplicated (without systemic symptoms) or Complicated (systemic symptoms)? @ -Complicated Side effects of treatment? @ -none Exacerbation, Progression, or Severe Exacerbation] @ -no Poses a threat to life or bodily function? @ -no Diagnosis/symptom? @ -Anxiety Acute, or Chronic, or Acute on Chronic? @ -Acute on chronic Uncomplicated (without systemic symptoms) or Complicated (systemic symptoms)? @ -Complicated Side effects of treatment? @ -none Exacerbation, Progression, or Severe Exacerbation] @ -no Poses a threat to life or bodily function? @ -no - Lab Data Result diagrams: 03/28/23 18:05 03/28/23 18:05 Lab Results 03/28/23 03/28/23 03/28/23 Range/Units 18:05 18:05 18:05 WBC 10.6 (3.8-10.6) k/uL RBC 3.09 L (4.30-5.90) m/uL Hgb 11.6 L (13.0-17.5) gm/dL Hct 32.6 L (39.0-53.0) % MCV 105.6 H (80.0-100.0) fL MCH 37.5 H (25.0-35.0) pg MCHC 35.5 (31.0-37.0) g/dL RDW 17.0 H (11.5-15.5) % Plt Count 236 (150-450) k/uL MPV 7.5 Neutrophils % Not Reportable Neutrophils % (Manual) 66 % Lymphocytes % Not Reportable Lymphocytes % (Manual) 28 % Monocytes % Not Reportable Monocytes % (Manual) 2 % Eosinophils % Not Reportable Eosinophils % (Manual) 4 % Basophils % Not Reportable Neutrophils # Not Reportable Neutrophils # (Manual) 7.00 (1.3-7.7) k/uL Lymphocytes # Not Reportable Lymphocytes # (Manual) 2.97 (1.0-4.8) k/uL Monocytes # Not Reportable Monocytes # (Manual) 0.21 (0-1.0) k/uL Eosinophils # Not Reportable Eosinophils # (Manual) 0.42 (0-0.7) k/uL Basophils # Not Reportable Nucleated RBCs 0 (0-0) /100 WBC Manual Slide Review Performed Anisocytosis Slight Anisocytosis (manual) Present Macrocytosis Moderate PT 10.3 (9.0-12.0) sec INR 1.0 (<1.2) APTT 24.3 (22.0-30.0) sec D-Dimer 0.43 (<0.60) mg/L FEU Sodium 134 L (137-145) mmol/L Potassium 4.8 (3.5-5.1) mmol/L Chloride 98 (98-107) mmol/L Carbon Dioxide 28 (22-30) mmol/L Anion Gap 8 mmol/L BUN 16 (9-20) mg/dL Creatinine 0.92 (0.66-1.25) mg/dL Est GFR (CKD-EPI)AfAm >90 (>60 ml/min/1.73 sqM) Est GFR (CKD-EPI)NonAf 80 (>60 ml/min/1.73 sqM) Glucose 146 H (74-99) mg/dL Plasma Lactic Acid Jaydon (0.7-2.0) mmol/L Calcium 9.1 (8.4-10.2) mg/dL Magnesium 2.2 (1.6-2.3) mg/dL Total Bilirubin 0.6 (0.2-1.3) mg/dL AST 61 H (17-59) U/L ALT 47 (4-49) U/L Alkaline Phosphatase 73 (38-126) U/L Troponin I (0.000-0.034) ng/mL NT-Pro-B Natriuret Pep 525 pg/mL Total Protein 6.5 (6.3-8.2) g/dL Albumin 4.1 (3.5-5.0) g/dL Lipase 132 (23-300) U/L Urine Color Urine Appearance (Clear) Urine pH (5.0-8.0) Ur Specific Jewett (1.001-1.035) Urine Protein (Negative) Urine Glucose (UA) (Negative) Urine Ketones (Negative) Urine Blood (Negative) Urine Nitrite (Negative) Urine Bilirubin (Negative) Urine Urobilinogen (<2.0) mg/dL Ur Leukocyte Esterase (Negative) Influenza Type A (PCR) (Not Detectd) Influenza Type B (PCR) (Not Detectd) RSV (PCR) (Not Detectd) SARS-CoV-2 (PCR) (Not Detectd) 03/28/23 03/28/23 03/28/23 Range/Units 18:05 18:05 18:10 WBC (3.8-10.6) k/uL RBC (4.30-5.90) m/uL Hgb (13.0-17.5) gm/dL Hct (39.0-53.0) % MCV (80.0-100.0) fL MCH (25.0-35.0) pg MCHC (31.0-37.0) g/dL RDW (11.5-15.5) % Plt Count (150-450) k/uL MPV Neutrophils % Neutrophils % (Manual) % Lymphocytes % Lymphocytes % (Manual) % Monocytes % Monocytes % (Manual) % Eosinophils % Eosinophils % (Manual) % Basophils % Neutrophils # Neutrophils # (Manual) (1.3-7.7) k/uL Lymphocytes # Lymphocytes # (Manual) (1.0-4.8) k/uL Monocytes # Monocytes # (Manual) (0-1.0) k/uL Eosinophils # Eosinophils # (Manual) (0-0.7) k/uL Basophils # Nucleated RBCs (0-0) /100 WBC Manual Slide Review Anisocytosis Anisocytosis (manual) Macrocytosis PT (9.0-12.0) sec INR (<1.2) APTT (22.0-30.0) sec D-Dimer (<0.60) mg/L FEU Sodium (137-145) mmol/L Potassium (3.5-5.1) mmol/L Chloride (98-107) mmol/L Carbon Dioxide (22-30) mmol/L Anion Gap mmol/L BUN (9-20) mg/dL Creatinine (0.66-1.25) mg/dL Est GFR (CKD-EPI)AfAm (>60 ml/min/1.73 sqM) Est GFR (CKD-EPI)NonAf (>60 ml/min/1.73 sqM) Glucose (74-99) mg/dL Plasma Lactic Acid Jaydon 1.2 (0.7-2.0) mmol/L Calcium (8.4-10.2) mg/dL Magnesium (1.6-2.3) mg/dL Total Bilirubin (0.2-1.3) mg/dL AST (17-59) U/L ALT (4-49) U/L Alkaline Phosphatase (38-126) U/L Troponin I <0.012 (0.000-0.034) ng/mL NT-Pro-B Natriuret Pep pg/mL Total Protein (6.3-8.2) g/dL Albumin (3.5-5.0) g/dL Lipase (23-300) U/L Urine Color Urine Appearance (Clear) Urine pH (5.0-8.0) Ur Specific Jewett (1.001-1.035) Urine Protein (Negative) Urine Glucose (UA) (Negative) Urine Ketones (Negative) Urine Blood (Negative) Urine Nitrite (Negative) Urine Bilirubin (Negative) Urine Urobilinogen (<2.0) mg/dL Ur Leukocyte Esterase (Negative) Influenza Type A (PCR) Not Detected (Not Detectd) Influenza Type B (PCR) Not Detected (Not Detectd) RSV (PCR) Not Detected (Not Detectd) SARS-CoV-2 (PCR) Not Detected (Not Detectd) 03/28/23 Range/Units 18:45 WBC (3.8-10.6) k/uL RBC (4.30-5.90) m/uL Hgb (13.0-17.5) gm/dL Hct (39.0-53.0) % MCV (80.0-100.0) fL MCH (25.0-35.0) pg MCHC (31.0-37.0) g/dL RDW (11.5-15.5) % Plt Count (150-450) k/uL MPV Neutrophils % Neutrophils % (Manual) % Lymphocytes % Lymphocytes % (Manual) % Monocytes % Monocytes % (Manual) % Eosinophils % Eosinophils % (Manual) % Basophils % Neutrophils # Neutrophils # (Manual) (1.3-7.7) k/uL Lymphocytes # Lymphocytes # (Manual) (1.0-4.8) k/uL Monocytes # Monocytes # (Manual) (0-1.0) k/uL Eosinophils # Eosinophils # (Manual) (0-0.7) k/uL Basophils # Nucleated RBCs (0-0) /100 WBC Manual Slide Review Anisocytosis Anisocytosis (manual) Macrocytosis PT (9.0-12.0) sec INR (<1.2) APTT (22.0-30.0) sec D-Dimer (<0.60) mg/L FEU Sodium (137-145) mmol/L Potassium (3.5-5.1) mmol/L Chloride (98-107) mmol/L Carbon Dioxide (22-30) mmol/L Anion Gap mmol/L BUN (9-20) mg/dL Creatinine (0.66-1.25) mg/dL Est GFR (CKD-EPI)AfAm (>60 ml/min/1.73 sqM) Est GFR (CKD-EPI)NonAf (>60 ml/min/1.73 sqM) Glucose (74-99) mg/dL Plasma Lactic Acid Jaydon (0.7-2.0) mmol/L Calcium (8.4-10.2) mg/dL Magnesium (1.6-2.3) mg/dL Total Bilirubin (0.2-1.3) mg/dL AST (17-59) U/L ALT (4-49) U/L Alkaline Phosphatase (38-126) U/L Troponin I (0.000-0.034) ng/mL NT-Pro-B Natriuret Pep pg/mL Total Protein (6.3-8.2) g/dL Albumin (3.5-5.0) g/dL Lipase (23-300) U/L Urine Color Light Yellow Urine Appearance Clear (Clear) Urine pH 5.5 (5.0-8.0) Ur Specific Jewett <1.005 (1.001-1.035) Urine Protein Negative (Negative) Urine Glucose (UA) Trace (Negative) Urine Ketones Negative (Negative) Urine Blood Negative (Negative) Urine Nitrite Negative (Negative) Urine Bilirubin Negative (Negative) Urine Urobilinogen <2.0 (<2.0) mg/dL Ur Leukocyte Esterase Negative (Negative) Influenza Type A (PCR) (Not Detectd) Influenza Type B (PCR) (Not Detectd) RSV (PCR) (Not Detectd) SARS-CoV-2 (PCR) (Not Detectd) - EKG Data -: EKG Interpreted by Me EKG Comments: 12-lead Electrocardiogram Interpretation Note EKG was reviewed and interpreted by myself. 12-lead ECG performed at 1710 is interpreted by me as revealing normal sinus rhythm at a rate of 75 beats per minute. [place] is normal. NV interval is 152 ms, QRS ration is 100 ms, QTc is 398 ms. Isolated T-wave inversion in lead III. There were no ST or T wave abnormalities to suggest myocardial ischemia or injury. R wave progression across the precordium was satisfactory. By my interpretation this EKG is non-diagnostic for acute ischemia. No significant change when compared to prior EKGs from March 2022. The T-wave inversion is new but there is no reciprocal changes. Disposition Clinical Impression: Anxiety, Chest pain, Neuropathy Disposition: ADMITTED IP TO THIS HOSP Condition: Stable Referrals: Nonstaff,Physician [Primary Care Provider] - 1-2 days Time of Disposition: 19:49
[2023-03-28 18:43] LABS: Anisocytosis Slight; HCT 32.6 % (39.0-53.0); HGB 11.6 gm/dL (13.0-17.5); MCH 37.5 pg (25.0-35.0); MCHC 35.5 g/dL (31.0-37.0); MCV 105.6 fL (80.0-100.0); Macrocytosis Moderate; Mean Platelet Volume 7.5; Platelet Count 236 k/uL (150-450); RBC 3.09 m/uL (4.30-5.90); WBC 10.6 k/uL (3.8-10.6)
--- NOTE | 2023-03-28 18:53 | XR ---
EXAMINATION TYPE: XR chest 2V DATE OF EXAM: 03/28/2023 6:48 PM COMPARISON: Chest radiographs from 04/24/2022 TECHNIQUE: XR chest 2V Frontal and lateral views of the chest. CLINICAL INDICATION:Male, 78 years old with history of Chest Pain; FINDINGS: Lungs/Pleura: There is no evidence of pleural effusion, focal consolidation, or pneumothorax. Pulmonary vascularity: Unremarkable. Heart/mediastinum: Cardiomediastinal silhouette is unremarkable. Musculoskeletal: No acute osseous pathology. Mild multilevel degenerative changes of the thoracic spi ne. IMPRESSION: No acute cardiopulmonary disease/process.
[2023-03-28 18:56] LABS: Partial Thromboplastin Time 24.3 sec (22.0-30.0); Prothrombin Time 10.3 sec (9.0-12.0)
--- NOTE | 2023-03-28 19:00 | CT ---
EXAMINATION TYPE: CT brain wo con CT DLP: 1190.4 mGycm, Automated exposure control for dose reduction was used. DATE OF EXAM: 03/28/2023 6:54 PM COMPARISON: None. CLINICAL INDICATION:Male, 78 years old with history of neuropathy/headache/feeling off, neuropathy/he adache/feeling off TECHNIQUE: Brain: Multiple axial CT images of the brain were obtained without IV contrast. Coronal and sagittal reformats reviewed. FINDINGS: Brain: Extra-axial spaces: No abnormal extra-axial fluid collections. Ventricular system: Within normal limits Cerebral parenchyma: Bilateral frontal lobe atrophy. No acute intraparenchymal hemorrhage or mass eff ect. The snyder-white junction is well differentiated. Cerebellum: Unremarkable. Mass effect: No evidence of midline shift. Intracranial vasculature: Atherosclerotic calcifications of the intracranial vessels. Soft tissues: Normal. Calvarium/osseous structures: No depressed skull fracture. Paranasal sinuses and mastoid air cells: Clear Visualized orbits: Orbital contents are intact. IMPRESSION: 1. No acute intracranial process. 2. Bilateral frontal lobe atrophy.
[2023-03-28 19:01] LABS: ALT 47 U/L (4-49); AST 61 U/L (17-59); African American GFR (CKD) >90 (>60 ml/min/1.73 sqM); Albumin 4.1 g/dL (3.5-5.0); Alkaline Phosphatase 73 U/L (38-126); Anion Gap 8 mmol/L; Blood Urea Nitrogen 16 mg/dL (9-20); Calcium 9.1 mg/dL (8.4-10.2); Carbon Dioxide 28 mmol/L (22-30); Chloride 98 mmol/L (98-107); Glucose 146 mg/dL (74-99); Lipase 132 U/L (23-300); Magnesium 2.2 mg/dL (1.6-2.3); Non-African American GFR(CKD) 80 (>60 ml/min/1.73 sqM); Potassium 4.8 mmol/L (3.5-5.1); Sodium 134 mmol/L (137-145); Total Bilirubin 0.6 mg/dL (0.2-1.3); Total Protein 6.5 g/dL (6.3-8.2)
[2023-03-28 19:03] LABS: NT-Pro-B-Type Natriuretic Pept 525 pg/mL
[2023-03-28 19:23] LABS: Appearance,Urine Clear (Clear); Bilirubin,Urine Negative (Negative); Blood,Urine Negative (Negative); Color,Urine Light Yellow; Glucose,Urine (UA) Trace (Negative); Ketones,Urine Negative (Negative); Leukocyte Esterase,Urine Negative (Negative); Nitrite,Urine Negative (Negative); PH, Urine 5.5 (5.0-8.0); Protein,Urine Negative (Negative); Specific Gravity,Urine <1.005 (1.001-1.035); Urobilinogen,Urine <2.0 mg/dL (<2.0)
[2023-03-28] MEDS ORDERED: LORazepam 0.5 MG TAB PO STA (19:40)
[2023-03-28] MEDS ORDERED: ASPIRIN 81 MG PO STA (19:42)
[2023-03-28] MEDS ORDERED: ONDANSETRON 4 MG/2 ML VIAL IVP PRN (19:49)
[2023-03-28] MEDS ORDERED: NALOXONE 0.4 MG/ML 1 ML VIAL IV PRN (19:49)
[2023-03-28] MEDS ORDERED: ACETAMINOPHEN TAB 325 MG TAB PO PRN (19:49)
[2023-03-28 20:04] LABS: Anisocytosis (M) Present; Eosinophils # (M) 0.42 k/uL (0-0.7); Lymphocytes # (M) 2.97 k/uL (1.0-4.8); Monocytes # (M) 0.21 k/uL (0-1.0); Neutrophils % (M) 66 %; Nucleated Red Blood Cells 0 /100 WBC (0-0); Total Cells Counted 100
[2023-03-28] MEDS ORDERED: ALBUTEROL NEBULIZED 2.5 MG/3 ML INHALATION PRN (20:24)
[2023-03-28] MEDS ORDERED: carBAMazepine 200 MG TAB PO PRN (20:24)
[2023-03-28] MEDS ORDERED: HYOSCYAMINE SULFATE 0.125 MG TAB PO PRN (20:24)
[2023-03-28] MEDS ORDERED: MELOXICAM 7.5 MG TAB PO PRN (20:24)
[2023-03-28] MEDS ORDERED: COLCHICINE 0.6 MG EACH PO PRN ×2 (20:24→20:43)
[2023-03-28] MEDS ORDERED: GABAPENTIN 100 MG CAP PO PRN (20:24)
[2023-03-28] MEDS: METOPROLOL SUCCINATE (ER) 25 MG TAB.ER.24H PO SCH (22:22)
[2023-03-28] MEDS: amLODIPine 5 MG TAB PO SCH (22:23)
[2023-03-28] MEDS: ZOLPIDEM 5 MG TAB PO SCH (22:23)
--- NOTE | 2023-03-29 02:37 | P.HPIM ---
History of Present Illness H&P Date: 03/28/23 Patient is a 78-year-old male with a PMH of hypertension and trigeminal neuralgia who presented to the emergency room with multiple complaints. The patient reports that over the past 1 week, he has been experiencing intermittent bilateral leg paresthesias, along with intermittent chest discomfort with shortness of breath. The patient reports that the chest discomfort is pressure and squeezing in nature, 5 out of 10 on maximal intensity, exertional and nonexertional, without associated diaphoresis, nausea, vomiting, or dizziness. The patient reports that he has a long-standing history of peripheral neuropathy with bilateral lower extremity paresthesias but states that it is somewhat worse now. He denied experiencing fever, chills, cough. In the emergency room, EKG revealed sinus rhythm at 75 bpm with Q waves in lead 3. CT brain was unremarkable. Chest x-ray was unremarkable. Laboratory evaluation revealed a troponin of less than 0.012, hemoglobin of 11.6, MCV 105.6, sodium 134, glucose 146, and an unremarkable UA. ED documentation reviewed and case discussed with ED provider. Review of systems: Pertinent positives and negatives as discussed in HPI, a complete review of sy stems was performed and all other systems are negative. Physical examination: Vital signs reviewed General: non toxic, no distress, appears at stated age, normal weight Derm: no unusual rashes/lesions, warm Head: atraumatic, normocephalic, symmetric Eyes: EOMI, no lid lag, anicteric sclera, pupils equal round reactive to light ENT: Nose and ears atraumatic Neck: No cervical lymphadenopathy, trachea midline, supple Mouth: no lip lesion, mucus membranes moist Cardiovascular: S1S2 reg, no murmur, positive dorsalis pedis pulse bilateral, no edema Lungs: CTA bilateral, no rhonchi, no rales, no accessory muscle use Abdominal: soft, nontender to palpation, no guarding Ext: muscle strength 5 out of 5 in all 4 extremities grossly, no gross muscle atrophy, no contractures, Neuro: CN II-XI grossly intact, no gross focal neuro deficits Psych: Alert, oriented, appropriate affect Assessment: Atypical chest pain, rule out ACS Bilateral lower extremity paresthesias, possibly related to B12 deficiency in setting of macrocytosis Hyperglycemia Chronic conditions: Hypertension, peripheral neuropathy Imaging: In the emergency room, EKG revealed sinus rhythm at 75 bpm with Q waves in lead 3. CT brain was unremarkable. Chest x-ray was unremarkable. Data Review: Laboratory evaluation revealed a troponin of less than 0.012, hemoglobin of 11.6, MCV 105.6, sodium 134, glucose 146, and an unremarkable UA. Plan: Cardiogenic consulted Cardiac monitoring Trend troponin Echocardiogram Check B12 and folate levels Continue with home meds DVT prophylaxis: Heparin subcu The patient is admitted with an anticipated less than 2 midnight stay for evaluation of chest pain CODE STATUS: Full Code Discussed with: Patient Anticipated discharge place: Home Past Medical History Past Medical History: Hypertension Additional Past Medical History / Comment(s): Esophegal spasms TMJ History of Any Multi-Drug Resistant Organisms: None Reported Past Surgical History: Cholecystectomy Additional Past Surgical History / Comment(s): Cardiac Stents. hernia Past Psychological History: No Psychological Hx Reported Smoking Status: Never smoker Past Alcohol Use History: None Reported Past Drug Use History: None Reported - Past Family History family Family Medical History: Coronary Artery Disease (CAD) Medications and Allergies Home Medications Medication Instructions Recorded Confirmed Type Albuterol Sulfate [Proair Hfa] 1 - 2 puff INHALATION RT-Q6H PRN 04/24/22 03/28/23 History Aspirin EC [Ecotrin Low Dose] 81 mg PO DAILY 04/24/22 03/28/23 History Atorvastatin Calcium [Lipitor] 40 mg PO DAILY 04/24/22 03/28/23 History Cholecalciferol [Vitamin D3 (25 50 mcg PO DAILY 04/24/22 03/28/23 History Mcg = 1000 Iu)] Isosorbide Mononitrate ER [Imdur] 30 mg PO DAILY 04/24/22 03/28/23 History Metoprolol Succinate (ER) [Toprol 25 mg PO BID 04/24/22 03/28/23 History XL] Nitroglycerin 0.3mg Tabs 0.3 mg SL Q5M PRN 04/24/22 03/28/23 History Omeprazole [PriLOSEC] 20 mg PO DAILY 04/24/22 03/28/23 History allopurinoL [Zyloprim] 100 mg PO DAILY 04/24/22 03/28/23 History amLODIPine [Norvasc] 5 mg PO HS 04/24/22 03/28/23 History Acetaminophen Tab [Tylenol Tab] 500 - 1,000 mg PO Q6HR PRN 03/28/23 03/28/23 History Celecoxib [CeleBREX] 200 mg PO DIRECTED PRN 03/28/23 03/28/23 History Colchicine 0.6 mg PO DIRECTED PRN 03/28/23 03/28/23 History Cyanocobalamin (Vitamin B-12) 1,000 mcg PO DAILY 03/28/23 03/28/23 History [Vitamin B-12] Gabapentin [Neurontin] 100 mg PO DIRECTED PRN 03/28/23 03/28/23 History Hyoscyamine Sulfate [Levsin] 0.125 mg PO DIRECTED PRN 03/28/23 03/28/23 History Vitamin C 600mg 600 mg PO DAILY 03/28/23 03/28/23 History Zolpidem [Ambien] 5 mg PO HS 03/28/23 03/28/23 History carBAMazepine [TEGretol] 100 mg PO BID PRN 03/28/23 03/28/23 History Allergies Allergy/AdvReac Type Severity Reaction Status Date / Time No Known Allergies Allergy Verified 03/28/23 20:05 Physical Exam Vitals: Vital Signs Temp Pulse Pulse Resp BP BP Pulse Ox 03/28/23 21:40 97.6 F 70 12 129/65 98 03/28/23 20:00 73 03/28/23 19:43 73 18 122/65 99 03/28/23 18:05 77 20 111/64 99 03/28/23 17:01 97.6 F 79 18 127/68 100 Intake and Output 03/28/23 03/28/23 03/29/23 14:59 22:59 06:59 Other: # Voids 1 Weight 86.183 kg Results CBC & Chem 7: 03/28/23 18:05 03/28/23 18:05 Labs: Abnormal Lab Results - Last 24 Hours (Table) 03/28/23 03/28/23 Range/Units 18:05 18:05 RBC 3.09 L (4.30-5.90) m/uL Hgb 11.6 L (13.0-17.5) gm/dL Hct 32.6 L (39.0-53.0) % MCV 105.6 H (80.0-100.0) fL MCH 37.5 H (25.0-35.0) pg RDW 17.0 H (11.5-15.5) % Sodium 134 L (137-145) mmol/L Glucose 146 H (74-99) mg/dL AST 61 H (17-59) U/L Thrombosis Risk Factor Assmnt - Choose All That Apply Any of the Below Risk Factors Present?: Yes Each Factor Represents 1 point: Obesity (BMI >25) Other Risk Factors: Yes Each Risk Factor Represents 3 Points: Age 75 years or older Other congenital or acquired thrombophilia - If yes, enter type in comment: No Thrombosis Risk Factor Assessment Total Risk Factor Score: 4 Thrombosis Risk Factor Assessment Level: Moderate Risk
[2023-03-29] MEDS: PANTOPRAZOLE 40 MG TABLET PO SCH (06:36)
[2023-03-29] MEDS: ISOSORBIDE MONONITRATE ER 30 MG TAB.ER.24H PO SCH ×2 (06:36→09:15)
[2023-03-29] MEDS ORDERED: CYANOCOBALAMIN 500 MCG TAB PO SCH (09:00)
[2023-03-29] MEDS ORDERED: ISOSORBIDE MONONITRATE ER 30 MG TAB.ER.24H PO SCH (09:00)
[2023-03-29] MEDS: ATORVASTATIN 40 MG TAB PO SCH (09:14)
[2023-03-29] MEDS: allopurinoL 100 MG TAB PO SCH (09:15)
[2023-03-29] MEDS: METOPROLOL SUCCINATE (ER) 25 MG TAB.ER.24H PO SCH ×2 (09:15→21:10)
[2023-03-29] MEDS: ASPIRIN 81 MG PO SCH (09:15)
[2023-03-29] MEDS: ENOXAPARIN 40 MG/0.4 ML SYRINGE SQ SCH (09:21)
[2023-03-29 09:58] LABS: BUN/Creat Ratio 9.67 Ratio (12.00-20.00); Blood Urea Nitrogen 8.7 mg/dL (9.0-27.0); Calcium 9.2 mg/dL (8.7-10.3); Carbon Dioxide 27.8 mmol/L (21.6-31.8); Chloride 103 mmol/L (96-109); Glucose 96 mg/dL (70-110); HCT 33.4 % (39.6-50.0); HGB 11.4 d/dL (13.0-17.0); MCH 35.7 pg (27.0-32.0); MCHC 34.1 d/dL (32.0-37.0); MCV 104.7 FL (80.0-97.0); Mean Platelet Volume 9.5 FL (9.5-12.2); NRBC Per 100 WBC 0 X 10*3/uL (0.00-0.01); Platelet Count 229 X 10*3/uL (140-440); Potassium 4.5 mmol/L (3.5-5.5); RBC 3.19 X 10*6/uL (4.40-5.60); RDW 16.6 % (11.5-14.5); Sodium 140 mmol/L (135-145); WBC 8.96 X 10*3/uL (4.50-10.00)
[2023-03-29] MEDS: polyethylene glycoL 3350 17 GM POWD.PACK PO SCH (10:45)
[2023-03-29 10:53] LABS: Basophils # (A) 0.03 X 10*3/uL (0.00-0.10); Basophils % (A) 0.3 %; Eosinophils # (A) 0.29 X 10*3/uL (0.04-0.35); Eosinophils % (A) 3.2 %; Lymphocytes # (A) 4.18 X 10*3/uL (0.90-5.00); Lymphocytes % (A) 46.7 %; Monocytes % (A) 7.8 %; Neutrophils # (A) 3.74 X 10*3/uL (1.80-7.70); Neutrophils % (A) 41.8 %; RBC Morphology Normal (Normal)
[2023-03-29] MEDS: GABAPENTIN 100 MG CAP PO SCH ×3 (11:30→21:10)
--- NOTE | 2023-03-29 15:08 | P.CRDCN ---
History of Present Illness Consult date: 03/29/23 History of present illness: HISTORY OF PRESENTING ILLNESS 78-year-old male with past medical history of coronary artery disease status post PCI to RCA. He follows up with his crusher and binder operator in [place]. His last PCI was in 2019. He present to the emergency department due to symptoms of substernal chest pain. He describes his chest pain as pressure-like and pins and needles sensations. It is not particularly related to activity or rest. It started when patient was resting. There is no particular exacerbating or alleviating factor. This pain is somewhat constant and is present at the time of evaluation. He reports that his anginal pain when he had coronary artery stenting done was very different from this type of pain. DIAGNOSTICS EKG reveals sinus rhythm with no significant ST-T wave changes. Chest xray clear lungs with no signs of primary congestion. Laboratory reviewed, hemoglobin 11.4, macrocytic anemia., Creatinine 0.9, troponins are negative, Current cardiac medications include amlodipine, aspirin, atorvastatin, metoprolol, Imdur. REVIEW OF SYSTEMS At the time of my exam: CONSTITUTIONAL: Denies fever or chills. CARDIOVASCULAR: Reports chest pain , Denies shortness of breath, orthopnea, PND or palpitations. RESPIRATORY: Denies cough. GASTROINTESTINAL: Denies abdominal pain, diarrhea, constipation, nausea or vomiting. MUSCULOSKELETAL: Reports myalgias NEUROLOGIC: Reports pins and needle sensation in bilateral lower extremity. Reports fogginess and head heaviness. ENDOCRINE: Denies fatigue, weight change, polydipsia or polyurina. GENITOURINARY: Denies burning, hematuria or urgency with micturation. HEMATOLOGIC: Denies history of anemia or bleeding. PHYSICAL EXAMINATION Vital signs reviewed. BP 115/64, pulse 69 CONSTITUTIONAL: No apparent distress. HEENT: Head is normocephalic. Pupils are equal, round. Sclerae anicteric. Mucous membranes of the mouth are moist. No JVD. No carotid bruit. CHEST EXAMINATION: Lungs are clear to auscultation. No chest wall tenderness is noted on palpation or with deep breathing. HEART EXAMINATION: Regular rate and rhythm. S1, S2 heard. No murmurs, gallops or rub. ABDOMEN: Soft, nontender. Positive bowel sounds. EXTREMITIES: 2+ peripheral pulses, no lower extremity edema and no calf tenderness. NEUROLOGIC EXAMINATION: Patient is awake, alert and oriented x3. ASSESSMENT Normal cardiac chest pain Prior history of CAD status post PCI to RCA in [place]. Last in 2019 Essential hypertension Peripheral neuropathy Macrocytic anemia PLAN Patient's chest pain is most likely noncardiac. No further testing is needed at this time. Patient is not a resident of [place] and lives in [place]. He is just here to visit his sister. I explained that patient should follow-up with his primary crusher and binder operator in [place] and she'll get an outpatient nuclear stress test with him. Continue current cardiac medications which include amlodipine, aspirin, atorva statin, metoprolol, Imdur Patient is concerned about his peripheral neuropathy symptoms and his anxiety at this time. Patient is cleared to discharge from Cardiac standpoint Past Medical History Past Medical History: Hypertension Additional Past Medical History / Comment(s): Esophegal spasms TMJ History of Any Multi-Drug Resistant Organisms: None Reported Past Surgical History: Cholecystectomy Additional Past Surgical History / Comment(s): Cardiac Stents. hernia Past Psychological History: No Psychological Hx Reported Smoking Status: Never smoker Past Alcohol Use History: None Reported Past Drug Use History: None Reported - Past Family History family Family Medical History: Coronary Artery Disease (CAD) Medications and Allergies Home Medications Medication Instructions Recorded Confirmed Type Albuterol Sulfate [Proair Hfa] 1 - 2 puff INHALATION RT-Q6H PRN 04/24/22 03/28/23 History Aspirin EC [Ecotrin Low Dose] 81 mg PO DAILY 04/24/22 03/28/23 History Atorvastatin Calcium [Lipitor] 40 mg PO DAILY 04/24/22 03/28/23 History Cholecalciferol [Vitamin D3 (25 50 mcg PO DAILY 04/24/22 03/28/23 History Mcg = 1000 Iu)] Isosorbide Mononitrate ER [Imdur] 30 mg PO DAILY 04/24/22 03/28/23 History Metoprolol Succinate (ER) [Toprol 25 mg PO BID 04/24/22 03/28/23 History XL] Nitroglycerin 0.3mg Tabs 0.3 mg SL Q5M PRN 04/24/22 03/28/23 History Omeprazole [PriLOSEC] 20 mg PO DAILY 04/24/22 03/28/23 History allopurinoL [Zyloprim] 100 mg PO DAILY 04/24/22 03/28/23 History amLODIPine [Norvasc] 5 mg PO HS 04/24/22 03/28/23 History Acetaminophen Tab [Tylenol Tab] 500 - 1,000 mg PO Q6HR PRN 03/28/23 03/28/23 History Celecoxib [CeleBREX] 200 mg PO DIRECTED PRN 03/28/23 03/28/23 History Colchicine 0.6 mg PO DAILY PRN 03/28/23 03/29/23 History Cyanocobalamin (Vitamin B-12) 1,000 mcg PO DAILY 03/28/23 03/28/23 History [Vitamin B-12] Gabapentin [Neurontin] 100 mg PO QAM PRN 03/28/23 03/29/23 History Hyoscyamine Sulfate [Levsin] 0.125 mg PO TID PRN 03/28/23 03/29/23 History Vitamin C 600mg 600 mg PO DAILY 03/28/23 03/28/23 History Zolpidem [Ambien] 5 mg PO HS 03/28/23 03/28/23 History carBAMazepine [TEGretol] 100 mg PO BID PRN 03/28/23 03/28/23 History Gabapentin [Neurontin] 200 mg PO HS PRN 03/29/23 03/29/23 History Allergies Allergy/AdvReac Type Severity Reaction Status Date / Time No Known Allergies Allergy Verified 03/28/23 20:05 Physical Exam Vitals: Vital Signs Temp Pulse Pulse Resp BP BP Pulse Ox 03/29/23 14:41 97.9 F 83 18 119/72 99 03/29/23 07:22 97 03/29/23 07:00 97.4 F L 69 18 115/64 100 03/29/23 01:30 97.3 F L 52 L 15 136/71 97 03/28/23 21:40 97.6 F 70 12 129/65 98 03/28/23 20:00 73 03/28/23 19:43 73 18 122/65 99 03/28/23 18:05 77 20 111/64 99 03/28/23 17:01 97.6 F 79 18 127/68 100 Intake and Output 03/29/23 03/29/23 03/29/23 06:59 14:59 22:59 Other: # Voids 1 Results 03/29/23 05:53 03/29/23 05:53 Cardiac Enzymes 03/28/23 03/28/23 03/28/23 Range/Units 18:05 18:05 20:45 AST 61 H (17-59) U/L Troponin I <0.012 <0.012 (0.000-0.034) ng/mL 03/29/23 Range/Units 01:55 AST (17-59) U/L Troponin I <0.012 (0.000-0.034) ng/mL Coagulation 03/28/23 Range/Units 18:05 PT 10.3 (9.0-12.0) sec APTT 24.3 (22.0-30.0) sec CBC 03/28/23 03/29/23 Range/Units 18:05 05:53 WBC 10.6 8.96 (3.8-10.6) k/uL RBC 3.09 L 3.19 L (4.30-5.90) m/uL Hgb 11.6 L 11.4 L (13.0-17.5) gm/dL Hct 32.6 L 33.4 L (39.0-53.0) % Plt Count 236 229 (150-450) k/uL Comprehensive Metabolic Panel 03/28/23 03/29/23 Range/Units 18:05 05:53 Sodium 134 L 140 (137-145) mmol/L Potassium 4.8 4.5 (3.5-5.1) mmol/L Chloride 98 103 (98-107) mmol/L Carbon Dioxide 28 27.8 (22-30) mmol/L BUN 16 8.7 L (9-20) mg/dL Creatinine 0.92 0.9 (0.66-1.25) mg/dL Glucose 146 H 96 (74-99) mg/dL Calcium 9.1 9.2 (8.4-10.2) mg/dL AST 61 H (17-59) U/L ALT 47 (4-49) U/L Alkaline Phosphatase 73 (38-126) U/L Total Protein 6.5 (6.3-8.2) g/dL Albumin 4.1 (3.5-5.0) g/dL Current Medications Generic Name Dose Route Start Last Admin Trade Name Freq PRN Reason Stop Dose Admin Acetaminophen 650 mg 03/28/23 19:49 Acetaminophen Tab 325 Mg Tab PO Q6HR PRN Mild Pain or Fever > 100.5 Albuterol Sulfate 2.5 mg 03/28/23 20:24 Albuterol Nebulized 2.5 Mg/3 Ml INHALATION RT-Q6H PRN Shortness Of Breath Allopurinol 100 mg 03/29/23 09:00 03/29/23 09:15 Allopurinol 100 Mg Tab PO 100 mg DAILY [facility] Administration Amlodipine Besylate 5 mg 03/28/23 21:00 03/28/23 22:23 Amlodipine 5 Mg Tab PO 5 mg HS [facility] Administration Aspirin 81 mg 03/29/23 09:00 03/29/23 09:15 Aspirin 81 Mg PO 81 mg DAILY [facility] Administration Atorvastatin Calcium 40 mg 03/29/23 09:00 03/29/23 09:14 Atorvastatin 40 Mg Tab PO 40 mg DAILY [facility] Administration Carbamazepine 100 mg 03/28/23 20:24 Carbamazepine 200 Mg Tab PO BID PRN trigeminal neuralgia Colchicine 0.6 mg 03/28/23 20:43 Colchicine 0.6 Mg Each PO DIRECTED PRN gout Cyanocobalamin 1,000 mcg 03/29/23 09:00 03/29/23 09:15 Cyanocobalamin 500 Mcg Tab PO 1,000 mcg DAILY [facility] Administration Enoxaparin Sodium 40 mg 03/29/23 09:00 03/29/23 09:21 Enoxaparin 40 Mg/0.4 Ml Syringe SQ Not Given DAILY [facility] Gabapentin 100 mg 03/29/23 11:30 03/29/23 11:30 Gabapentin 100 Mg Cap PO 100 mg TID [facility] Administration Hyoscyamine 0.125 mg 03/28/23 20:24 Hyoscyamine Sulfate 0.125 Mg Tab PO DIRECTED PRN GI Upset Isosorbide Mononitrate 30 mg 03/29/23 07:00 03/29/23 09:15 Isosorbide Mononitrate Er 30 Mg Tab.Er.24h PO 30 mg DAILY [facility] Administration Metoprolol Succinate 25 mg 03/28/23 21:00 03/29/23 09:15 Metoprolol Succinate (Er) 25 Mg Tab.Er.24h PO 25 mg BID [facility] Administration Naloxone HCl 0.2 mg 03/28/23 19:49 Naloxone 0.4 Mg/Ml 1 Ml Vial IV Q2M PRN Opioid Reversal Non-Formulary Medication 200 mg 03/28/23 20:24 Celecoxib [Celebrex] PO DIRECTED PRN Pain Ondansetron HCl 4 mg 03/28/23 19:49 Ondansetron 4 Mg/2 Ml Vial IVP Q8HR PRN Nausea And Vomiting Pantoprazole Sodium 40 mg 03/29/23 07:30 03/29/23 06:36 Pantoprazole 40 Mg Tablet PO 40 mg [id number] [facility] Administration Polyethylene Glycol 17 gm 03/29/23 10:45 03/29/23 10:45 Polyethylene Glycol 3350 17 Gm Powd.Pack PO 17 gm DAILY [facility] Administration Zolpidem Tartrate 5 mg 03/28/23 21:00 03/28/23 22:23 Zolpidem 5 Mg Tab PO 5 mg HS [facility] Administration Intake and Output 03/29/23 03/29/23 03/29/23 06:59 14:59 22:59 Other: # Voids 1 03/29/23 05:53 03/29/23 05:53
--- NOTE | 2023-03-29 15:12 | P.PN ---
Subjective Progress Note Date: 03/29/23 She was seen and examined at bedside. He denies having any chest pain or shortness of breath. He reports that he finds it difficult to get up and use restroom and is not happy taking his Lasix. PHYSICAL EXAMINATION Vital signs reviewed. CONSTITUTIONAL: No apparent distress. Morbidly obese HEENT: Head is normocephalic. Pupils are equal, round. Sclerae anicteric. Mucous membranes of the mouth are moist. No JVD. No carotid bruit. CHEST EXAMINATION: Lungs are clear to auscultation. No chest wall tenderness is noted on palpation or with deep breathing. HEART EXAMINATION: Irregularly irregular S1, S2 heard. No murmurs, gallops or rub. ABDOMEN: Soft, nontender. Positive bowel sounds. EXTREMITIES: 2+ peripheral pulses, no lower extremity edema and no calf tenderness. NEUROLOGIC EXAMINATION: Patient is awake, alert and oriented x3. ASSESSMENT Lower extremity cellulitis Chronic atrial fibrillation. On anticoagulation with warfarin Chronic heart failure with preserved ejection fraction Moderate obesity PLAN Continue aspirin, Lasix 40 mg daily, lisinopril, hydrochlorothiazide, metoprolol 75 mg twice a day. Debridement surgery is not indicated as per surgery team. We will recommend r esuming his warfarin for atrial fibrillation Start Jardiance 10 mg daily Continue IV antibiotics as per primary team Wound care and peripheral vascular evaluation as per surgery team and primary team No further cardiac testing needed at this time Objective - Vital Signs Vital signs: Vital Signs Temp 97.9 F 03/29/23 14:41 Pulse 83 03/29/23 14:41 Resp 18 03/29/23 14:41 BP 119/72 03/29/23 14:41 Pulse Ox 99 03/29/23 14:41 FiO2 Intake & Output 03/28/23 03/29/23 03/29/23 18:59 06:59 18:59 Weight 86.183 kg 86.183 kg Other: # Voids 1 - Labs CBC & Chem 7: 03/29/23 05:53 03/29/23 05:53 Labs: Abnormal Lab Results - Last 24 Hours (Table) 03/28/23 03/28/23 03/29/23 Range/Units 18:05 18:05 05:53 RBC 3.09 L 3.19 L (4.30-5.90) m/uL Hgb 11.6 L 11.4 L (13.0-17.5) gm/dL Hct 32.6 L 33.4 L (39.0-53.0) % MCV 105.6 H 104.7 H (80.0-100.0) fL MCH 37.5 H 35.7 H (25.0-35.0) pg RDW 17.0 H 16.6 H (11.5-15.5) % Sodium 134 L (137-145) mmol/L BUN (9.0-27.0) mg/dL BUN/Creatinine Ratio (12.00-20.00) Ratio Glucose 146 H (74-99) mg/dL AST 61 H (17-59) U/L Vitamin B12 (200.0-944.0) pg/mL 03/29/23 03/29/23 Range/Units 05:53 05:53 RBC (4.30-5.90) m/uL Hgb (13.0-17.5) gm/dL Hct (39.0-53.0) % MCV (80.0-100.0) fL MCH (25.0-35.0) pg RDW (11.5-15.5) % Sodium (137-145) mmol/L BUN 8.7 L (9.0-27.0) mg/dL BUN/Creatinine Ratio 9.67 L (12.00-20.00) Ratio Glucose (74-99) mg/dL AST (17-59) U/L Vitamin B12 >1800.0 H (200.0-944.0) pg/mL
--- NOTE | 2023-03-29 16:22 | P.CNNES ---
History of Present Illness Consult date: 03/29/23 Reason for Consult: Acute on chronic bilateral lower extremity peripheral neuropathy History of Present Illness: The patient is a 78-year-old male who is seen in neurologic consultation on March 29, 2023, via teleneurology. History is obtained from the chart. He reports that he is up here from [place], visiting his sister. He has been reportedly helping her in her home. He reports that he has been going up and down the stairs quite a bit. He says that his primary concern is sudden onset of increased pain and numbness in his bilateral lower extremities. He says that approximately 5 days ago, the pain suddenly got worse. He says that he has A history of neuropathy involving his left foot "some" and right foot, "very little". In addition, the patient reports that he has been having cramping of his thigh muscles. This sensation is new for him. Because of the increased severity of pain and numbness, the patient reports that he does not even feel safe driving. He says he has seen a neurologist in [place] and had nerve conduction studies and EMG testing performed. It was reportedly abnormal. The patient however does not know the etiology of his neuropathy. He denies diabetes. B12 level has been assessed as been found to be greater than 1800. The patient denies back injury. He reportedly has been helping his sister, in her home. He reports that in his own home, he does not have any stairs and so going up and down stairs, several times a day, is new for him. In the emergency department, CT scan of the brain was performed. There is no evidence of acute hemorrhage or infarct. Past Medical History Past Medical History: Hypertension Additional Past Medical History / Comment(s): Esophegal spasms TMJ History of Any Multi-Drug Resistant Organisms: None Reported Past Surgical History: Cholecystectomy Additional Past Surgical History / Comment(s): Cardiac Stents. hernia Past Psychological History: No Psychological Hx Reported Smoking Status: Never smoker Past Alcohol Use History: None Reported Past Drug Use History: None Reported - Past Family History family Family Medical History: Coronary Artery Disease (CAD) Medications and Allergies Home Medications Medication Instructions Recorded Confirmed Type Albuterol Sulfate [Proair Hfa] 1 - 2 puff INHALATION RT-Q6H PRN 04/24/22 03/28/23 History Aspirin EC [Ecotrin Low Dose] 81 mg PO DAILY 04/24/22 03/28/23 History Atorvastatin Calcium [Lipitor] 40 mg PO DAILY 04/24/22 03/28/23 History Cholecalciferol [Vitamin D3 (25 50 mcg PO DAILY 04/24/22 03/28/23 History Mcg = 1000 Iu)] Isosorbide Mononitrate ER [Imdur] 30 mg PO DAILY 04/24/22 03/28/23 History Metoprolol Succinate (ER) [Toprol 25 mg PO BID 04/24/22 03/28/23 History XL] Nitroglycerin 0.3mg Tabs 0.3 mg SL Q5M PRN 04/24/22 03/28/23 History Omeprazole [PriLOSEC] 20 mg PO DAILY 04/24/22 03/28/23 History allopurinoL [Zyloprim] 100 mg PO DAILY 04/24/22 03/28/23 History amLODIPine [Norvasc] 5 mg PO HS 04/24/22 03/28/23 History Acetaminophen Tab [Tylenol Tab] 500 - 1,000 mg PO Q6HR PRN 03/28/23 03/28/23 History Celecoxib [CeleBREX] 200 mg PO DIRECTED PRN 03/28/23 03/28/23 History Colchicine 0.6 mg PO DAILY PRN 03/28/23 03/29/23 History Cyanocobalamin (Vitamin B-12) 1,000 mcg PO DAILY 03/28/23 03/28/23 History [Vitamin B-12] Gabapentin [Neurontin] 100 mg PO QAM PRN 03/28/23 03/29/23 History Hyoscyamine Sulfate [Levsin] 0.125 mg PO TID PRN 03/28/23 03/29/23 History Vitamin C 600mg 600 mg PO DAILY 03/28/23 03/28/23 History Zolpidem [Ambien] 5 mg PO HS 03/28/23 03/28/23 History carBAMazepine [TEGretol] 100 mg PO BID PRN 03/28/23 03/28/23 History Gabapentin [Neurontin] 200 mg PO HS PRN 03/29/23 03/29/23 History Allergies Allergy/AdvReac Type Severity Reaction Status Date / Time No Known Allergies Allergy Verified 03/28/23 20:05 Physical Examination - Vital Signs Vital Signs: Vital Signs Temp Pulse Pulse Resp BP BP Pulse Ox 03/29/23 07:22 97 03/29/23 07:00 97.4 F L 69 18 115/64 100 03/29/23 01:30 97.3 F L 52 L 15 136/71 97 03/28/23 21:40 97.6 F 70 12 129/65 98 03/28/23 20:00 73 03/28/23 19:43 73 18 122/65 99 03/28/23 18:05 77 20 111/64 99 03/28/23 17:01 97.6 F 79 18 127/68 100 Intake and Output 03/28/23 03/29/23 03/29/23 22:59 06:59 14:59 Other: # Voids 1 1 Weight 86.183 kg Gen. upon my entry to the room, the patient is standing. He is experiencing a muscle cramp, involving his left thigh. The patient reports that he "needs to walk it out". He is observed walking around the room. He is observed squatting and stretching in attempts to relieve his muscle spasm. The patient is well- nourished. He appears healthy. HEENT: Head is atraumatic, normocephalic. Fundus not visualized. There is no scleral icterus. Mucous membranes are moist Neck: Supple without carotid bruits Heart: Regular rate and rhythm Lungs: Clear to auscultation Extremities: Without edema Neurological examination Mental status: The patient is awake, alert and oriented 3. His speech is clear. There is no dysarthria or aphasia. The patient does seem slightly anxious Cranial nerves: Pupils are equal at 3 mm and reactive. Visual gonsalez are full to confrontation. Extraocular movements are intact. There is no nystagmus. Facial sensation is intact. There is no facial asymmetry. Hearing is grossly intact. Uvula and palate are midline. Shoulder shrug is symmetric. Tongue protrudes midline. Motor: Upper extremity strength 5/5. Right ankle dorsiflexors 4/5. Left dorsiflexors 5/5. Bilateral plantar flexors 5/5. Bilateral hamstrings 3-/5, on strength testing however, the patient was observed squatting and standing, before the actual neurological examination began. Sensation: Reported decreased light touch in the left foot, leg and upper extremity. Sensation to touch is intact bilaterally in the neck. Proprioception is intact at the great toes bilaterally Coordination: Finger to nose and [id number] testing is intact bilaterally. Rapid alternating movements are intact bilaterally. Deep tendon reflexes: 3+/4+ throughout with the exception of the Achilles reflexes which are absent bilaterally. Plantar responses are flexor tony aterally. Gait: Within normal limits. There is no evidence of foot drop or weakness of the knees or circumduction of the hips. Results - Laboratory Findings CBC and BMP: 03/29/23 05:53 03/29/23 05:53 Abnormal Lab Findings: Abnormal Labs 03/28/23 03/28/23 03/29/23 18:05 18:05 05:53 RBC 3.09 L 3.19 L Hgb 11.6 L 11.4 L Hct 32.6 L 33.4 L MCV 105.6 H 104.7 H MCH 37.5 H 35.7 H RDW 17.0 H 16.6 H Sodium 134 L BUN BUN/Creatinine Ratio Glucose 146 H AST 61 H Vitamin B12 03/29/23 03/29/23 05:53 05:53 RBC Hgb Hct MCV MCH RDW Sodium BUN 8.7 L BUN/Creatinine Ratio 9.67 L Glucose AST Vitamin B12 >1800.0 H Assessment and Plan Assessment: 1. Reported baseline peripheral neuropathy with recent increase in numbness as well as pain, in the setting of reported increased ascending and descending of stairs The patient's neurological examination is inconsistent. The patient does have absent Achilles reflexes which may be seen in peripheral neuropathy versus early findings of Guillain-Mosquera syndrome 2. Reported history of trigeminal neuralgia for which the patient takes Tegretol as needed 3. Reported history of coronary artery disease Plan: 1. CPK and C-reactive protein have been ordered 2. Physical therapy evaluation 3. Continue to monitor patient's strength for worsening Thank you for allowing us to participate in the care of this patient Dr. Vamshi Oviedo will assume neurologic coverage of this patient has a March 30, 2023 Time with Patient: Greater than 30 (59 minutes were spent in caring for this patient today including obtaining a history, examining the patient, reviewing imaging, chart documentation, lab was, placing orders and creating this note)
--- NOTE | 2023-03-29 16:42 | P.PN ---
Subjective Progress Note Date: 03/29/23 Hospital course: Patient is a pleasant 78-year-old male with a past medical history of hypertension, chronic anemia, peripheral neuropathy, and trigeminal neuralgia. He presented to the emergency department 03/28/23 with a chief complaint of chest pain and severe bilateral lower extremity paresthesias. He underwent full evaluation. EKG completed showing normal sinus rhythm at 75 bpm with inferior T-wave inversion but no signs of ST elevation upon personal review and interpretation. CT head completed negative for acute intercranial process revealing bilateral frontal lobe atrophy. Chest x-ray completed negative for acute cardiopulmonary process. Labs were completed and reviewed. CBC showing macrocytic hyperchromic anemia with hemoglobin of 11.6. BMP revealing mild hypo natremia with sodium 134 and glucose of 146. Liver profile showing slightly elevated AST of 61 otherwise normal findings. Troponin less than 0.012 and proBNP 525. Patient was admitted under our services with consultation to cardiology and neurology. Physical exam: Patient seen and evaluated at bedside this morning. He reports chest pain is resolved but continues to have significant lower extremity paresthesias and cramping. Patient reports he does have Neurontin at home that he can take as needed but reports he has not used in a long time. Orders place for Neurontin 100 mg 3 times daily. Vital signs reviewed and stable. General: Nontoxic, no distress and appears stated age. Derm: Skin warm and dry, normal coloration for ethnicity. Head: Atraumatic, normocephalic and symmetric. Eyes: EOMs intact, no lid lag, and anicteric sclera Mouth: no lip lesions, mucus membranes moist Cardiovascular: regular rate and rhythm with normal S1S2, no murmur, positive posterior tibial pulses bilaterally, and cap refill < 2 seconds. Lungs: Respirations even, regular, and unlabored on room air. Lungs CTA bilaterally, no rhonchi, no rales, no wheezing, and no accessory muscle usage. Abdominal: soft, nontender to palpation, no guarding, no appreciable organomegaly Ext: ROM intact. No gross muscle atrophy, no edema, no contractures Neuro: Speech clear, face symmetrical and CN II-XII grossly intact with no noted focal neuro deficits Psych: Alert and oriented to person, place, time, and situation. Appropriate and pleasant affect. Assessment and Plan of Care: Atypical chest pain, acute coronary event ruled out History of CAD with stents -Cardiology consulted, appreciate further recommendations -Continue Telemetry monitoring -Troponins trended overnight all negative at less than 0.0123 draws. -Cardiac diet -Continue cardiac medication regimen with Aspirin 81 mg daily, atorvastatin 40 mg daily, isosorbide mononitrate 30 mg daily, and metoprolol 25 mg twice daily. -Echocardiogram Peripheral neuropathy with Bilateral lower extremity paresthesias Vitamin B12 toxicity -Patient previously taking vitamin B12 100 mg daily. B12 levels resulting this morning greater than 1800. B12 discontinued at this time. -Patient started on Neurontin 100 mg 3 times daily for treatment of bilateral lower extremity pain and paresthesias. -Neurology following recommending MRI. Macrocytic hyperchromic anemia -Unclear cause. Patient reports he is under care of deputy felony clerk in [place] who continues testing to determine cause. -Vitamin B12 greater than 1800. -Folate levels pending. CODE STATUS: Full code DVT prophylaxis: Lovenox Discussed with: Patient and RN Anticipated discharge date: Clinical course to determine Anticipated discharge place: Home Patient was seen independently by Nurse Pracitioner. This document was prepared using [employer] dictation software. Please allow for errors in roll cleaner, while rare they do occur. Marcial Lei NP rendered care for this patient independently, reviewed the findings and plan as documented in the note above. I did not physically speak with or examine the patient on this date. Objective - Vital Signs Vital signs: Vital Signs Temp 97.4 F L 03/29/23 07:00 Pulse 69 03/29/23 07:00 Resp 18 03/29/23 07:00 BP 115/64 03/29/23 07:00 Pulse Ox 97 03/29/23 07:22 FiO2 Intake & Output 03/28/23 03/29/23 03/29/23 18:59 06:59 18:59 Weight 86.183 kg 86.183 kg Other: # Voids 1 - Labs CBC & Chem 7: 03/30/23 05:56 03/30/23 05:56 Labs: Abnormal Lab Results - Last 24 Hours (Table) 03/28/23 03/28/23 Range/Units 18:05 18:05 RBC 3.09 L (4.30-5.90) m/uL Hgb 11.6 L (13.0-17.5) gm/dL Hct 32.6 L (39.0-53.0) % MCV 105.6 H (80.0-100.0) fL MCH 37.5 H (25.0-35.0) pg RDW 17.0 H (11.5-15.5) % Sodium 134 L (137-145) mmol/L Glucose 146 H (74-99) mg/dL AST 61 H (17-59) U/L
[2023-03-29] MEDS ORDERED: GABAPENTIN 100 MG CAP PO PRN (16:45)
[2023-03-29] MEDS: ZOLPIDEM 5 MG TAB PO SCH (21:10)
[2023-03-29] MEDS: amLODIPine 5 MG TAB PO SCH (21:10)
[2023-03-29] MEDS ORDERED: SENNOSIDES 8.6 MG TAB PO STA (22:09)
[2023-03-29 23:25] LABS: C Reactive Protein, High Sens 0.355 mg/L (0.000-3.000)
[2023-03-30] MEDS: ISOSORBIDE MONONITRATE ER 30 MG TAB.ER.24H PO SCH (06:07)
[2023-03-30] MEDS: PANTOPRAZOLE 40 MG TABLET PO SCH (06:07)
[2023-03-30] MEDS: ATORVASTATIN 40 MG TAB PO SCH (08:42)
[2023-03-30] MEDS: METOPROLOL SUCCINATE (ER) 25 MG TAB.ER.24H PO SCH ×2 (08:42→21:10)
[2023-03-30] MEDS: ENOXAPARIN 40 MG/0.4 ML SYRINGE SQ SCH ×2 (08:42→10:25)
[2023-03-30] MEDS: polyethylene glycoL 3350 17 GM POWD.PACK PO SCH (08:42)
[2023-03-30] MEDS: allopurinoL 100 MG TAB PO SCH (08:42)
[2023-03-30] MEDS: ASPIRIN 81 MG PO SCH (08:42)
[2023-03-30] MEDS: GABAPENTIN 100 MG CAP PO SCH ×3 (08:43→21:10)
[2023-03-30 08:46] LABS: HCT 34.7 % (39.6-50.0); HGB 11.8 d/dL (13.0-17.0); MCH 35.6 pg (27.0-32.0); MCV 104.8 FL (80.0-97.0); Mean Platelet Volume 9.4 FL (9.5-12.2); NRBC Per 100 WBC 0 X 10*3/uL (0.00-0.01); Platelet Count 254 X 10*3/uL (140-440); RBC 3.31 X 10*6/uL (4.40-5.60); RDW 16.5 % (11.5-14.5); WBC 10.45 X 10*3/uL (4.50-10.00)
[2023-03-30 09:04] LABS: ALT 42 U/L (10-49); AST 41 U/L (14-35); Albumin 4.3 d/dL (3.8-4.9); Albumin/Globulin Ratio 2.26 Ratio (1.60-3.17); Alkaline Phosphatase 66 U/L (41-126); BUN/Creat Ratio 11.25 Ratio (12.00-20.00); Calcium 9.6 mg/dL (8.7-10.3); Carbon Dioxide 29.9 mmol/L (21.6-31.8); Chloride 102 mmol/L (96-109); Globulin 1.9 d/dL (1.6-3.3); Glucose 92 mg/dL (70-110); Magnesium 2.1 mg/dL (1.5-2.4); Potassium 4.8 mmol/L (3.5-5.5); Sodium 139 mmol/L (135-145); Total Bilirubin 0.6 mg/dL (0.3-1.2); Total Protein 6.2 d/dL (6.2-8.2)
--- NOTE | 2023-03-30 13:31 | MR ---
EXAMINATION TYPE: MR cervical spine wo con DATE OF EXAM: 03/30/2023 INDICATION: Patient age: Male; 78 years old; Reason for study: new onset leg pain and weakness. Diffuse hyperreflexia; PHH. New onset leg pain and weakness, neuropathy. COMPARISON: None TECHNIQUE: Multi planar, multi sequence imaging was performed utilizing: T1-weighted, T2-weighted, an d turbo inversion recovery imaging of the cervical spine. IV Contrast: None FINDINGS: Alignment: The cervical vertebral bodies have preserved heights. Alignment is within normal limits gi paco patient positioning. Bones: Scattered Modic endplate changes with osteophytes and disc space narrowing. Multilevel degener ative disc disease is noted and most pronounced at the C5-C7 vertebral levels. Mild inversion recover y signal at the adjoining endplates anteriorly of C6 and C7 as well as the lateral facets of C3 and C 4. Cord: The spinal cord is unremarkable with regards to their signal intensity and morphology. Discs: Intervertebral disc signal is maintained. C2-C3: No significant disc pathology. The spinal canal is patent. Bilateral facet and uncovertebral joint arthropathy are present with mild bilateral neural foraminal stenosis. C3-C4: No significant disc pathology. The spinal canal is patent. Bilateral facet and uncovertebral joint arthropathy are present with mild bilateral neural foraminal stenosis. C4-C5: No significant disc pathology. The spinal canal is patent. Bilateral facet and uncovertebral joint arthropathy are present with mild bilateral neural foraminal stenosis. C5-C6: A disc osteophyte complex is present with mild spinal canal stenosis. Bilateral facet and unc overtebral joint arthropathy are present with mild bilateral neural foraminal stenosis. C6-C7: No significant disc pathology. The spinal canal is patent. Bilateral facet and uncovertebral joint arthropathy are present with mild bilateral neural foraminal stenosis. C7-T1: No significant disc pathology. The spinal canal is patent. No neural foraminal stenosis. Other: None. IMPRESSION: 1. No evidence for disc herniation or significant spinal canal or neural foraminal stenosis. 2. Mild disc degeneration with associated osteoarthritic changes with active inflammation of the left C3-C4 facet joint likely on a degenerative basis.
--- NOTE | 2023-03-30 17:11 | CA ---
Transthoracic Echo Report Name: Juan Soria Age: 78 Gender: M : 1945 Exam Date: 03/30/2023 11:05 Exam Location: [facility] Ht (in): 72 Wt (lb): 190 Ordering Physician: kM Fournier MD Attending/Referring Phys: Backup Operator Procedure CPT: Indications: Chest Pain Cardiac Hx: Technical Quality: Technically difficult study Contrast 1: Lumason Total Dose (mL): 2 Contrast 2: Total Dose (mL): MEASUREMENTS (Male / Female) Normal Values 2D ECHO LV Diastolic Diameter PLAX 3.5 cm 4.2 - 5.9 / 3.9 - 5.3 cm LV Systolic Diameter PLAX 2.5 cm IVS Diastolic Thickness 1.3 cm 0.6 - 1.0 / 0.6 - 0.9 cm LVPW Diastolic Thickness 1.4 cm 0.6 - 1.0 / 0.6 - 0.9 cm LV Relative Wall Thickness 0.8 LA Volume 36.6 cm??? 18 - 58 / 22 - 52 cm??? M-MODE Aortic Root Diameter MM 4.0 cm LA Systolic Diameter MM 2.4 cm LA Ao Ratio MM 0.6 AV Cusp Separation MM 2.4 cm DOPPLER AV Peak Velocity 90.3 cm/s AV Peak Gradient 3.3 mmHg AV Mean Velocity 70.3 cm/s AV Mean Gradient 2.1 mmHg AV Velocity Time Integral 22.2 cm LVOT Peak Velocity 71.2 cm/s LVOT Peak Gradient 2.0 mmHg LVOT Velocity Time Integral 14.8 cm MV Area PHT 3.6 cm??? Mitral E Point Velocity 50.1 cm/s Mitral A Point Velocity 83.8 cm/s Mitral E to A Ratio 0.6 MV Deceleration Time 211.3 ms MV E' Velocity 5.1 cm/s Mitral E to MV E' Ratio 9.9 TR Peak Velocity 212.0 cm/s TR Peak Gradient 18.0 mmHg Right Ventricular Systolic Press 23.0 mmHg FINDINGS Left Ventricle Mildly increased left ventricular wall thickness. Left ventricular cavity size normal. Normal left ventricular systolic function with no obvious regional wall motion abnormalities. Left ventricular ejection fraction is estimated at 55 %. Right Ventricle Normal right ventricular size and function. Right ventricular systolic pressure within normal limits. Right Atrium Normal right atrial size. Left Atrium Normal left atrial size. Mitral Valve Structurally normal mitral valve. No mitral stenosis, regurgitation or prolapse. Aortic Valve No aortic valve stenosis or regurgitation. Tricuspid Valve Pulmonic Valve Trace pulmonic regurgitation. Pericardium No pericardial effusion. Aorta Normal size aortic root and proximal ascending aorta. CONCLUSIONS Left ventricular ejection fraction 55% Mild increased left ventricular wall thickness No mitral regurgitation Mild tricuspid regurgitation No pericardial effusion Previewed by: Dr. Bartolo Roman DO (Electronically Signed) Final Date: 30 March 2023 17:09
--- NOTE | 2023-03-30 17:49 | P.PN ---
Subjective Progress Note Date: 03/30/23 Hospital course: Patient is a pleasant 78-year-old male with a past medical history of hypertension, chronic anemia, peripheral neuropathy, and trigeminal neuralgia. He presented to the emergency department 03/28/23 with a chief complaint of chest pain and severe bilateral lower extremity paresthesias. He underwent full evaluation. EKG completed showing normal sinus rhythm at 75 bpm with inferior T-wave inversion but no signs of ST elevation upon personal review and interpretation. CT head completed negative for acute intercranial process revealing bilateral frontal lobe atrophy. Chest x-ray completed negative for acute cardiopulmonary process. Labs were completed and reviewed. CBC showing macrocytic hyperchromic anemia with hemoglobin of 11.6. BMP revealing mild hypo natremia with sodium 134 and glucose of 146. Liver profile showing slightly elevated AST of 61 otherwise normal findings. Troponin less than 0.012 and proBNP 525. Patient was admitted under our services with consultation to cardiology and neurology. Physical exam: Patient seen and evaluated at bedside this morning. He reports chest pain remains resolved and states he does have improvement in his lower extremity paresthesias with current medication regimen with Neurontin 900 mg 3 times isaak y. Echocardiogram was completed and patient awaiting to go down for MRI this afternoon. Vital signs reviewed and stable. General: Nontoxic, no distress and appears stated age. Derm: Skin warm and dry, normal coloration for ethnicity. Head: Atraumatic, normocephalic and symmetric. Eyes: EOMs intact, no lid lag, and anicteric sclera Mouth: no lip lesions, mucus membranes moist Cardiovascular: regular rate and rhythm with normal S1S2, no murmur, positive posterior tibial pulses bilaterally, and cap refill < 2 seconds. Lungs: Respirations even, regular, and unlabored on room air. Lungs CTA bilaterally, no rhonchi, no rales, no wheezing, and no accessory muscle usage. Abdominal: soft, nontender to palpation, no guarding, no appreciable organomegaly Ext: ROM intact. No gross muscle atrophy, no edema, no contractures Neuro: Speech clear, face symmetrical and CN II-XII grossly intact with no noted focal neuro deficits Psych: Alert and oriented to person, place, time, and situation. Appropriate and pleasant affect. Assessment and Plan of Care: Peripheral neuropathy with Bilateral lower extremity paresthesias Highly elevated Vitamin B12 -Patient previously taking vitamin B12 100 mg daily. B12 levels resulted at greater than 1800. B12 discontinued at this time. -Patient started on Neurontin 100 mg 3 times daily for treatment of bilateral lower extremity pain and paresthesias. -Neurology following recommending MRI and discussed plan of care with neurologist, Dr. Oviedo. Macrocytic hyperchromic anemia -Unclear cause. Patient reports he is under care of pilot control operator in [place] who continues testing to determine cause. -Vitamin B12 greater than 1800. -Folate levels also elevated at 852 Atypical chest pain, acute coronary event ruled out History of CAD with stents -Cardiology evaluated in ruling out acute coronary event clearing patient from cardiac perspective for discharge. -Continue Telemetry monitoring -Cardiac diet -Continue cardiac medication regimen with Aspirin 81 mg daily, atorvastatin 40 mg daily, isosorbide mononitrate 30 mg daily, and metoprolol 25 mg twice daily. -Echocardiogram completed and currently pending results. CODE STATUS: Full code DVT prophylaxis: Lovenox Discussed with: Patient, neurologist and RN Anticipated discharge date: Clinical course to determine Anticipated discharge place: Home Patient was seen independently by Nurse Pracitioner. This document was prepared using [employer] dictation software. Please allow for errors in pest control service technician, while rare they do occur. Marcial Lei NP rendered care for this patient independently, reviewed the findings and plan as documented in the note above. I did not physically speak with or examine the patient on this date. Objective - Vital Signs Vital signs: Vital Signs Temp 97.6 F 03/30/23 03:04 Pulse 59 L 03/30/23 03:04 Resp 15 03/30/23 03:04 BP 104/59 03/30/23 03:04 Pulse Ox 97 03/30/23 03:04 FiO2 Intake & Output 03/29/23 03/30/23 03/30/23 18:59 06:59 18:59 Intake Total 240 Balance 240 Intake: Oral 240 Other: # Voids 2 1 - Labs CBC & Chem 7: 03/30/23 05:56 03/30/23 05:56 Labs: Abnormal Lab Results - Last 24 Hours (Table) 03/29/23 03/29/23 03/29/23 Range/Units 05:53 05:53 05:53 WBC (4.50-10.00) X 10*3/uL RBC 3.19 L (4.40-5.60) X 10*6/uL Hgb 11.4 L (13.0-17.0) d/dL Hct 33.4 L (39.6-50.0) % MCV 104.7 H (80.0-97.0) FL MCH 35.7 H (27.0-32.0) pg RDW 16.6 H (11.5-14.5) % MPV (9.5-12.2) FL BUN 8.7 L (9.0-27.0) mg/dL BUN/Creatinine Ratio 9.67 L (12.00-20.00) Ratio AST (14-35) U/L Creatine Kinase (35-257) U/L Vitamin B12 >1800.0 H (200.0-944.0) pg/mL 03/29/23 03/30/23 03/30/23 Range/Units 08:40 05:56 05:56 WBC 10.45 H (4.50-10.00) X 10*3/uL RBC 3.31 L (4.40-5.60) X 10*6/uL Hgb 11.8 L (13.0-17.0) d/dL Hct 34.7 L (39.6-50.0) % MCV 104.8 H (80.0-97.0) FL MCH 35.6 H (27.0-32.0) pg RDW 16.5 H (11.5-14.5) % MPV 9.4 L (9.5-12.2) FL BUN (9.0-27.0) mg/dL BUN/Creatinine Ratio 11.25 L (12.00-20.00) Ratio AST 41 H (14-35) U/L Creatine Kinase 267 H (35-257) U/L Vitamin B12 (200.0-944.0) pg/mL
--- NOTE | 2023-03-30 19:27 | P.PN ---
Subjective Progress Note Date: 03/30/23 I am seeing the patient for the first time during this admission. Please refer to Dr. Mclean's for further details. Patient stated that he has peripheral neuropathy in the bilateral feet and he had EMG which confirmed that and he stated his a left lower extremity and distal numbness was more pronounced on the left and he didn't feel like he had much on the right but the EMG confirmed peripheral neuropathy of bilateral lower extremity and he had EMG in the 2021 over in the [place] and follows up with a neurologist over [place]. Recently in the last 1 week he felt the numbness got worse and felt the lateral lower extremity per week from proximal G date that down. Denies any falls. Denies of any recent fever cough any recent upper respiratory tract infection or any loose stools. Denies of any urinary or bowel incontinence. Today he states he feels 50% better compared to initial presentation. He's been walking without any issues. He does acknowledge that he has a chronic lower back pain and does not feel he got worse. He denies of any urinary or bowel incontinence. Objective - Vital Signs Vital signs: Vital Signs Temp 97.6 F 03/30/23 15:00 Pulse 76 03/30/23 15:00 Resp 16 03/30/23 15:00 BP 113/67 03/30/23 15:00 Pulse Ox 100 03/30/23 15:00 FiO2 Intake & Output 03/30/23 03/30/23 03/31/23 06:59 18:59 06:59 Intake Total 240 Balance 240 Intake: Oral 240 Other: # Voids 1 3 - Exam GENERAL: The patient is lying in bed and is not in acute distress. NEUROLOGICAL: Higher mental function: The patient is awake, alert, oriented to self, place and time. Patient is following commands. No aphasia and no neglect. Cranial nerves: The pupils are round, equal and reactive to light and accommodation. Visual gonsalez are full to confrontation throughout. Extraocular movement is intact no nystagmus is noted. Facial sensation is normal to touch throughout. The facial strength is normal throughout.Tongue is midline and moved [id number] without any difficulty. No dysarthria is noted. Shoulder shrug is normal bilaterally. Motor: Gait is normal. The strength is hips flexion is 4+ to 5-. Otherwise 5 over 5 throughout. Normal tone and bulk. Cerebellum: Normal finger to nose heel to alexis bilaterally. Sensation: Sensation is normal to touch throughout. Reflexes (right/left):Ankles are absent while others are 2+ throughout. Plantars are mute bilaterally. - Labs CBC & Chem 7: 03/30/23 05:56 03/30/23 05:56 Labs: Abnormal Lab Results - Last 24 Hours (Table) 03/29/23 03/29/23 03/30/23 Range/Units 05:53 08:40 05:56 WBC 10.45 H (4.50-10.00) X 10*3/uL RBC 3.31 L (4.40-5.60) X 10*6/uL Hgb 11.8 L (13.0-17.0) d/dL Hct 34.7 L (39.6-50.0) % MCV 104.8 H (80.0-97.0) FL MCH 35.6 H (27.0-32.0) pg RDW 16.5 H (11.5-14.5) % MPV 9.4 L (9.5-12.2) FL BUN/Creatinine Ratio (12.00-20.00) Ratio AST (14-35) U/L Creatine Kinase 267 H (35-257) U/L RBC Folate 852 H (280 - 791) ng/mL 03/30/23 Range/Units 05:56 WBC (4.50-10.00) X 10*3/uL RBC (4.40-5.60) X 10*6/uL Hgb (13.0-17.0) d/dL Hct (39.6-50.0) % MCV (80.0-97.0) FL MCH (27.0-32.0) pg RDW (11.5-14.5) % MPV (9.5-12.2) FL BUN/Creatinine Ratio 11.25 L (12.00-20.00) Ratio AST 41 H (14-35) U/L Creatine Kinase (35-257) U/L RBC Folate (280 - 791) ng/mL Assessment and Plan Assessment: This is a 78-year-old gentleman with history of peripheral neuropathy of lower extremity which was confirmed on EMG in 2021 who states he has been having worsening of the numbness with weakness of proximal and knees but today he feels 50% better compared to initial presentation. Denies of any recent upper respiratory tract infection or any loose stools or fevers. Denies of any urinary bowel incontinence. He does have chronic lower back pain. Worsening of the numbness with some weakness of the lower extremity: Likely worsening of his underlying neuropathy. Cannot rule out lumbosacral severe stenosis as a result. Patient does have absent reflexes in the ankles but the patient has underlying peripheral neuropathy that is old and the possibly his underlying peripheral neuropathy is a result of the is absent reflex. History of peripheral neuropathy and he had EMG in 2021 over at [place] Chronic lower back pain History of trigeminal neuralgia History of coronary artery disease next Plan: Patient was notified the that we can obtain MRI of the lumbar spine to rule out any worsening of his underlying the spinal stenosis but he declined. He will consider as an outpatient. Recommend EMG of lower conduction study of lowers as outpatient to rule out any worsening of his underlying neuropathy and which is low last EMG of the lowers it was in 2021. B12 is more than 1800, red blood cell folate is a 52, CK level is 267 (normal is 35-257) and his is not concerning, CRP is 0.355. Hemoglobin A1c is 5.7 Otherwise no additional neurologic workup is needed. We'll defer the rest of the medical management to the primary team. I highly recommend the patient to follow-up with his neurologist as an outpatient for further evaluation. Otherwise no additional neurologic workup. We'll sign off. Please reconsult as needed. Time with Patient: Less than 30
[2023-03-30] MEDS: ZOLPIDEM 5 MG TAB PO SCH (21:10)
[2023-03-30] MEDS: amLODIPine 5 MG TAB PO SCH (21:10)
[2023-03-31] MEDS: PANTOPRAZOLE 40 MG TABLET PO SCH (05:35)
[2023-03-31 08:08] VITALS: BP 113/64; PULSE 79; RESP 16; TEMP 98.1
[2023-03-31] MEDS: ISOSORBIDE MONONITRATE ER 30 MG TAB.ER.24H PO SCH (09:41)
[2023-03-31] MEDS: ASPIRIN 81 MG PO SCH (09:41)
[2023-03-31] MEDS: GABAPENTIN 100 MG CAP PO SCH (09:42)
[2023-03-31] MEDS: allopurinoL 100 MG TAB PO SCH (09:42)
[2023-03-31] MEDS: METOPROLOL SUCCINATE (ER) 25 MG TAB.ER.24H PO SCH (09:42)
[2023-03-31] MEDS: ATORVASTATIN 40 MG TAB PO SCH (09:42)
[2023-03-31] MEDS: ENOXAPARIN 40 MG/0.4 ML SYRINGE SQ SCH (09:42)
[2023-03-31] MEDS: polyethylene glycoL 3350 17 GM POWD.PACK PO SCH (09:42)
--- NOTE | 2023-03-31 11:36 | P.DS ---
Providers Date of admission: 03/28/23 19:49 Expected date of discharge: 03/31/23 Attending physician: Rebecca Templeton MD Consults: 03/28/23 19:49 Consult Physician Routine Consulting Provider: India Mclean Consult Reason/Comments: bilateral neuropathy LE, acute on chronic Do you want consulting provider notified?: Yes Primary care physician: Physician Nonstaff Hospital Course: Discharge Diagnosis: Peripheral neuropathy with Bilateral lower extremity paresthesias. Highly elevated Vitamin B12 and folate levels. Macrocytic hyperchromic anemia Atypical chest pain, acute coronary event ruled out History of CAD with stents Trigeminal neuralgia Hypertension Hospital Course: Patient is a pleasant 78-year-old male with a past medical history of hypertension, chronic macrocytic anemia, peripheral neuropathy, and trigeminal neuralgia. He presented to the emergency department 03/28/23 with a chief complaint of chest pain and severe bilateral lower extremity paresthesias. He underwent full evaluation. EKG completed showing normal sinus rhythm at 75 bpm with inferior T-wave inversion but no signs of ST elevation upon personal review and interpretation. CT head completed negative for acute intercranial process revealing bilateral frontal lobe atrophy. Chest x-ray completed negative for acute cardiopulmonary process. Labs were completed and reviewed. CBC showing macrocytic hyperchromic anemia with hemoglobin of 11.6. BMP revealing mild hyponatremia with sodium 134 and glucose of 146. Liver profile showing slightly elevated AST of 61 otherwise normal findings. Troponin less than 0.012 and proBNP 525. Patient was admitted under our services with consultation to cardio logy and neurology. Troponins were trended all negative at less than 0.0123 draws. Echocardiogram was completed with mild tricuspid regurgitation. Patient was evaluated by cardiology recommending no further cardiac workup at this time clearing patient from cardiac perspective. Patient evaluated by neurologist and underwent MRI cervical spine without contrast, this showed no evidence for disc herniation or significant spinal canal or neuronal foraminal stenosis with mild disc degeneration with associated osteoarthritic changes with active inflammation of the left C3 through C4 facet joint likely on a degenerative basis, he was started back on Neurontin and placed on 100 mg 3 times daily. He reported significant improvement in peripheral neuropathy and paresthesias. Vitamin B12 levels greater than 1800 and folate levels 852. Patient's B12 supplements discontinued. Patient reports he follows up outpatient with contact lens flashing puncher/oncologist in [place] and has been tested multiple times for multiple myeloma with negative findings. Patient also follows up with neurologist for his peripheral neuropathy and trigeminal neuralgia. Patient has been cleared from cardiology standpoint and neurology standpoint. Medically, patient stable at this time showing no signs of acute distress. Patient medically stable for discharge and to follow up outpatient with his PCP, fire protection fabricator, neurologist, and contact lens flashing puncher upon return to [place]. Physical exam: Vital signs reviewed and stable. General: Nontoxic, no distress and appears stated age. Derm: Skin warm and dry, normal coloration for ethnicity. Head: Atraumatic, normocephalic and symmetric. Eyes: EOMs intact, no lid lag, and anicteric sclera Mouth: no lip lesions, mucus membranes moist Cardiovascular: regular rate and rhythm with normal S1S2, no murmur, positive posterior tibial pulses bilaterally, and cap refill < 2 seconds. Lungs: Respirations even, regular, and unlabored on room air. Lungs CTA bilaterally, no rhonchi, no rales, no wheezing, and no accessory muscle usage. Abdominal: soft, nontender to palpation, no guarding, no appreciable organomegaly Ext: ROM intact. No gross muscle atrophy, no edema, no contractures Neuro: Speech clear, face symmetrical and CN II-XII grossly intact with no noted focal neuro deficits Psych: Alert and oriented to person, place, time, and situation. Appropriate and pleasant affect. A total of 35 minutes of time were spent preparing this complex discharge summary. Pt was discharged on 03/31/23 at 11:33 AM. Patient was seen independently by Nurse Practitioner. This document was prepared using [employer] dictation software. Please allow for errors in certified low vision therapist while rare they do occur. I reviewed the documentation as provided by the BROOK above, who is the original author of this note. I agree with the documented assessment and plan, with the following changes: none Patient Condition at Discharge: Stable Plan - Discharge Summary Discharge Rx Participant: No New Discharge Prescriptions: Continue Omeprazole [PriLOSEC] 20 mg PO DAILY Albuterol Sulfate [Proair Hfa] 1 - 2 puff INHALATION RT-Q6H PRN PRN Reason: Shortness Of Breath allopurinoL [Zyloprim] 100 mg PO DAILY Metoprolol Succinate (ER) [Toprol XL] 25 mg PO BID Atorvastatin Calcium [Lipitor] 40 mg PO DAILY Cholecalciferol [Vitamin D3 (25 Mcg = 1000 Iu)] 50 mcg PO DAILY Gabapentin [Neurontin] 100 mg PO TID PRN PRN Reason: NERVE PAIN Vitamin C 600mg 600 mg PO DAILY Zolpidem [Ambien] 5 mg PO HS PRN PRN Reason: Insomnia Isosorbide Mononitrate ER [Imdur] 30 mg PO DAILY Nitroglycerin 0.3mg Tabs 0.3 mg SL Q5M PRN PRN Reason: Chest Pain Aspirin EC [Ecotrin Low Dose] 81 mg PO DAILY Acetaminophen Tab [Tylenol] 500 - 1,000 mg PO Q6HR PRN PRN Reason: Fever And/ Or Pain Celecoxib [CeleBREX] 200 mg PO DIRECTED PRN PRN Reason: Pain Hyoscyamine Sulfate [Levsin] 0.125 mg PO TID PRN PRN Reason: Gi Upset Discontinued Cyanocobalamin (Vitamin B-12) [Vitamin B-12] 1,000 mcg PO DAILY No Action amLODIPine [Norvasc] 2.5 mg PO HS #30 tab Discharge Medication List Albuterol Sulfate [Proair Hfa] 1 - 2 puff INHALATION RT-Q6H PRN 04/24/22 [History] Aspirin EC [Ecotrin Low Dose] 81 mg PO DAILY 04/24/22 [History] Atorvastatin Calcium [Lipitor] 40 mg PO DAILY 04/24/22 [History] Cholecalciferol [Vitamin D3 (25 Mcg = 1000 Iu)] 50 mcg PO DAILY 04/24/22 [History] Isosorbide Mononitrate ER [Imdur] 30 mg PO DAILY 04/24/22 [History] Metoprolol Succinate (ER) [Toprol XL] 25 mg PO BID 04/24/22 [History] Nitroglycerin 0.3mg Tabs 0.3 mg SL Q5M PRN 04/24/22 [History] Omeprazole [PriLOSEC] 20 mg PO DAILY 04/24/22 [History] allopurinoL [Zyloprim] 100 mg PO DAILY 04/24/22 [History] Acetaminophen Tab [Tylenol] 500 - 1,000 mg PO Q6HR PRN 03/28/23 [History] Celecoxib [CeleBREX] 200 mg PO DIRECTED PRN 03/28/23 [History] Gabapentin [Neurontin] 100 mg PO TID PRN 03/28/23 [History] Hyoscyamine Sulfate [Levsin] 0.125 mg PO TID PRN 03/28/23 [History] Vitamin C 600mg 600 mg PO DAILY 03/28/23 [History] Zolpidem [Ambien] 5 mg PO HS PRN 03/28/23 [History] amLODIPine [Norvasc] 2.5 mg PO HS #30 tab 04/05/23 [Rx] Patient Instructions/Handouts: Chest Pain (DC), Peripheral Neuropathy (GEN) Activity/Diet/Wound Care/Special Instructions: Activity: As tolerated. Take breaks as needed. Diet: Heart healthy and carb consistent diet. Avoid salts, or foods with hidden salts such as canned or boxed foods and frozen dinners. Extra salt makes your heart work harder and traps the fluid in your body for longer. Special Instructions: Take all of your medications as directed and remember to keep all of your doctor's appointments and follow-up as needed. You will need to follow up with your primary doctor, contact lens flashing puncher, and neurologist upon your return to [place]. As discussed, it is highly recommended that you continue taking the Neurontin as previously prescribed for your peripheral neuropathy. Recommend Neurontin 100 mg 3 times daily or he can take as previously scheduled 100 mg each morning and 200 mg nightly before bed. I understand that you stated this medication slows you down a bit, but try the differences with the doses as recommended above to determine which works best for you and manages your pain. Also as discussed your vitamin B12 and Folate levels were very elevated and your supplement has been discontinued. Thank you for allowing us to participate in your care, it was truly a pleasure having you for our patient!!! Have a safe trip back to the [facility]!!! Discharge Disposition: HOME SELF-CARE
== END 2023-03-31 13:35 | disposition home or self-care (01) ==
LOC: EC 16:55 → 6NMEDSUR 19:49
PROVIDERS: ADMIT Internal Medicine; ATTEND Internal Medicine
DX: R07.89 Other chest pain (principal); G62.9 Polyneuropathy, unspecified; R20.2 Paresthesia of skin; R06.02 Shortness of breath; I10 Essential (primary) hypertension; F41.9 Anxiety disorder, unspecified; G50.0 Trigeminal neuralgia; Z20.822 Contact with and (suspected) exposure to COVID-19; I25.110 Atherosclerotic heart disease of native coronary artery with unstable angina pectoris; R73.9 Hyperglycemia, unspecified; R42 Dizziness and giddiness; M26.609 Unspecified temporomandibular joint disorder, unspecified side; D53.9 Nutritional anemia, unspecified; E87.1 Hypo-osmolality and hyponatremia; G89.29 Other chronic pain; M54.50 Low back pain, unspecified; Z90.49 Acquired absence of other specified parts of digestive tract; Z95.5 Presence of coronary angioplasty implant and graft; Z98.890 Other specified postprocedural states; Z82.49 Family history of ischemic heart disease and other diseases of the circulatory system; Z79.82 Long term (current) use of aspirin; Z79.899 Other long term (current) drug therapy
CPT/HCPCS: 99285; 36415; 94760; 93005; 85379; 82747; 83880; 80053 ×2; 80048; 80157; 82607; 82550; 83605; 83690; 83735 ×2; 84484 ×2; 85025 ×2; 85027; 85610; 85730; 86141; 81003; 83036; 87636; 71046; 70450; 72141; G0378 ×4; C8929; Q9950; 93306

== ENCOUNTER 2023-04-03 23:34 | Observation (INO) | payer MEDICARE ==
--- NOTE | 2023-04-04 00:03 | ED ---
Chest Pain HPI - General Chief Complaint: Chest Pain Stated Complaint: Chest pain Time Seen by Provider: 04/03/23 23:43 Source: patient Mode of arrival: wheelchair Limitations: no limitations - History of Present Illness Initial Comments: 78-year-old male with past history of coronary artery disease, esophageal spasms who presents to the emergency department reporting chest pain. Patient was just seen and evaluated for chest pain and was discharged home on the first. He had an echo performed at that time. He states that his pain did resolve however he did have chest pain which started around 11 PM. States that he took 2 nitro without any improvement in his pain. He describes it as a substernal pressure with radiation to his back. Admits to nausea. No vomiting. No fevers, chills or cough. No history of DVT or PE. No calf pain or swelling. No other alleviating, precipitating or modifying factors - Related Data Home Medications Medication Instructions Recorded Confirmed Albuterol Sulfate [Proair Hfa] 1 - 2 puff INHALATION RT-Q6H PRN 04/24/22 04/04/23 Aspirin EC [Ecotrin Low Dose] 81 mg PO DAILY 04/24/22 04/04/23 Atorvastatin Calcium [Lipitor] 40 mg PO DAILY 04/24/22 04/04/23 Cholecalciferol [Vitamin D3 (25 50 mcg PO DAILY 04/24/22 04/04/23 Mcg = 1000 Iu)] Isosorbide Mononitrate ER [Imdur] 30 mg PO DAILY 04/24/22 04/04/23 Metoprolol Succinate (ER) [Toprol 25 mg PO BID 04/24/22 04/04/23 XL] Nitroglycerin 0.3mg Tabs 0.3 mg SL Q5M PRN 04/24/22 04/04/23 Omeprazole [PriLOSEC] 20 mg PO DAILY 04/24/22 04/04/23 allopurinoL [Zyloprim] 100 mg PO DAILY 04/24/22 04/04/23 amLODIPine [Norvasc] 5 mg PO HS 04/24/22 04/04/23 Acetaminophen Tab [Tylenol] 500 - 1,000 mg PO Q6HR PRN 03/28/23 04/04/23 Celecoxib [CeleBREX] 200 mg PO DIRECTED PRN 03/28/23 04/04/23 Gabapentin [Neurontin] 100 mg PO TID 03/28/23 04/04/23 Hyoscyamine Sulfate [Levsin] 0.125 mg PO TID PRN 03/28/23 04/04/23 Vitamin C 600mg 500 mg PO DAILY 03/28/23 04/04/23 Zolpidem [Ambien] 5 mg PO HS PRN 03/28/23 04/04/23 Allergies Allergy/AdvReac Type Severity Reaction Status Date / Time iodine Allergy Unknown Verified 04/04/23 01:32 Review of Systems ROS Statement: Those systems with pertinent positive or pertinent negative responses have been documented in the HPI. ROS Other: All systems not noted in ROS Statement are negative. Past Medical History Past Medical History: Hypertension Additional Past Medical History / Comment(s): Esophegal spasms TMJ History of Any Multi-Drug Resistant Organisms: None Reported Past Surgical History: Cholecystectomy Additional Past Surgical History / Comment(s): Cardiac Stents. hernia Past Psychological History: No Psychological Hx Reported Smoking Status: Never smoker Past Alcohol Use History: None Reported Past Drug Use History: None Reported - Past Family History family Family Medical History: Coronary Artery Disease (CAD) General Exam Limitations: no limitations General appearance: alert, in no apparent distress Head exam: Present: atraumatic, normocephalic, normal inspection Eye exam: Present: normal appearance, PERRL, EOMI. Absent: scleral icterus, conjunctival injection, periorbital swelling ENT exam: Present: normal exam, mucous membranes moist Neck exam: Present: normal inspection. Absent: tenderness, meningismus, lymphadenopathy Respiratory exam: Present: normal lung sounds bilaterally. Absent: respiratory distress, wheezes, rales, rhonchi, stridor Cardiovascular Exam: Present: regular rate, normal rhythm, normal heart sounds. Absent: systolic murmur, diastolic murmur, rubs, gallop, clicks GI/Abdominal exam: Present: soft, normal bowel sounds. Absent: distended, tenderness, guarding, rebound, rigid Extremities exam: Present: normal inspection, full ROM, normal capillary refill. Absent: tenderness, pedal edema, joint swelling, calf tenderness Back exam: Present: normal inspection Neurological exam: Present: alert, oriented X3, CN II-XII intact Psychiatric exam: Present: normal affect, normal mood Skin exam: Present: warm, dry, intact, normal color. Absent: rash Course Vital Signs 08/04/23 08/05/23 08/05/23 23:35 00:00 01:00 Temperature 96.9 F L Pulse Rate 90 80 83 Respiratory 16 16 18 Rate Blood Pressure 156/74 150/74 127/75 O2 Sat by Pulse 99 99 99 Oximetry 04/04/23 04/04/23 04/04/23 02:00 03:00 04:00 Temperature Pulse Rate 77 71 72 Respiratory 16 12 8 L Rate Blood Pressure 146/77 114/82 114/62 O2 Sat by Pulse 98 95 97 Oximetry Chest Pain MDM - MDM Was pt. sent in by a medical professional or institution (, PA, PA[employer], urgent care, hospital, or shelter...) When possible be specific @ -No Did you speak to anyone other than the patient for history (EMS, parent, family, police, friend...)? What history was obtained from this source @ -No Did you review nursing and triage notes (agree or disagree)? Why? @ -I reviewed and agree with nursing and triage notes Were old charts reviewed (outside hosp., previous admission, EMS record, old EKG, old radiological studies, urgent care reports/EKG's, shelter records)? Report findings @ -I reviewed the patient's discharge summary from the first Differential Diagnosis (chest pain, altered mental status, abdominal pain women, abdominal pain men, vaginal bleeding, weakness, fever, dyspnea, syncope, headache, dizziness, GI bleed, back pain, seizure, CVA, palpatations, mental health, musculoskeletal)? @ -Differential Chest Pain: Stable Angina, Unstable Angina, STEMI, NSTEMI Aortic Dissection, Pneumothorax, Musculoskeletal, Esophageal Spasm GERD, Cholecystitis, Pancreatitis, Zoster, this is not meant to be an all-inclusive list. EKG interpreted by me (3pts min.). @ -Yes and demonstrates sinus rhythm with rate of 93. MO interval 181. QRS 94. QTC 407. No acute ST segment elevations or depressions X-rays interpreted by me (1pt min.). @ -None done CT interpreted by me (1pt min.). @ -Yes and demonstrates no PE. No dissection. No aneurysm U/S interpreted by me (1pt. min.). @ -None done What testing was considered but not performed or refused? (CT, X-rays, U/S, labs)? Why? @ -None What meds were considered but not given or refused? Why? @ -None Did you discuss the management of the patient with other professionals (professionals i.e. , PA, [employer], lab, RT, psych nurse, protective services social worker, toe closing machine tender, teacher, grant officer, high risk case manager)? Give summary @ -Spoke with Dr. manuel who will admit patient Was smoking cessation discussed for >3mins.? @ -No Was critical care preformed (if so, how long)? @ -No Were there social determinants of health that impacted care today? How? (Homelessness, low income, unemployed, alcoholism, drug addiction, transportation, low edu. Level, literacy, decrease access to med. care, long term, rehab)? @ -No Was there de-escalation of care discussed even if they declined (Discuss DNR or withdrawal of care, Hospice)? DNR status @ -No What co-morbidities impacted this encounter? (DM, HTN, Smoking, COPD, CAD, Cancer, CVA, ARF, Chemo, Hep., AIDS, mental health diagnosis, sleep apnea, morbid obesity)? @ -Coronary artery disease Was patient admitted / discharged? Hospital course, mention meds given and route, prescriptions, significant lab abnormalities, going to OR and other pertinent info. @ -Upon arrival patient was placed into 3. A thorough history and physical exam was performed. Laboratory studies are conducted. Patient does go for CT of his chest. Results are discussed the patient. He continues to have chest pain. Recommended admission. Spoke with Dr. manuel. cardiology will be placed on consult Undiagnosed new problem with uncertain prognosis? @ -yes Drug Therapy requiring intensive monitoring for toxicity (Heparin, Nitro, Insulin, Cardizem)? @ -No Were any procedures done? @ -No Diagnosis/symptom? @ -Acute chest pain Acute, or Chronic, or Acute on Chronic? @ -Acute Uncomplicated (without systemic symptoms) or Complicated (systemic symptoms)? @ -Complicated Side effects of treatment? @ -No Exacerbation, Progression, or Severe Exacerbation? @ -No Poses a threat to life or bodily function? How? (Chest pain, USA, PR, pneumonia, PE, COPD, DKA, ARF, appy, cholecystitis, CVA, Diverticulitis, Homicidal, Suicidal, threat to staff... and all critical care pts) @ -Yes patient has chest pain which may represent acute coronary syndrome Disposition Clinical Impression: Chest pain Disposition: ADMITTED IP TO THIS HOSP Condition: Stable Is patient prescribed a controlled substance at d/c from ED?: No Time of Disposition: 04:03 Decision to Admit Reason: Admit from EC Decision Date: 04/04/23 Decision Time: 04:03
[2023-04-04 00:23] LABS: ALT 46 U/L (4-49); AST 53 U/L (17-59); African American GFR (CKD) >90 (>60 ml/min/1.73 sqM); Albumin 4.5 g/dL (3.5-5.0); Alkaline Phosphatase 88 U/L (38-126); Anion Gap 9 mmol/L; Anisocytosis Slight; Blood Urea Nitrogen 18 mg/dL (9-20); Calcium 9.6 mg/dL (8.4-10.2); Carbon Dioxide 26 mmol/L (22-30); Chloride 100 mmol/L (98-107); Glucose 101 mg/dL (74-99); HCT 33.5 % (39.0-53.0); HGB 11.9 gm/dL (13.0-17.5); Lipase 248 U/L (23-300); MCH 37.3 pg (25.0-35.0); MCHC 35.7 g/dL (31.0-37.0); MCV 104.6 fL (80.0-100.0); Macrocytosis Moderate; Magnesium 2.1 mg/dL (1.6-2.3); Mean Platelet Volume 7.5; Non-African American GFR(CKD) 80 (>60 ml/min/1.73 sqM); Platelet Count 253 k/uL (150-450); Potassium 3.9 mmol/L (3.5-5.1); Sodium 135 mmol/L (137-145); Total Bilirubin 0.7 mg/dL (0.2-1.3); Total Protein 7.2 g/dL (6.3-8.2); WBC 13.9 k/uL (3.8-10.6)
[2023-04-04 00:31] LABS: NT-Pro-B-Type Natriuretic Pept 382 pg/mL
[2023-04-04 00:34] LABS: INR 0.9 (<1.2); Prothrombin Time 9.8 sec (9.0-12.0)
[2023-04-04 00:41] LABS: Band Neutrophils % 1 %; Eosinophils # (M) 0.42 k/uL (0-0.7); Lymphocytes # (M) 6.81 k/uL (1.0-4.8); Monocytes # (M) 0.56 k/uL (0-1.0); Neutrophils % (M) 43 %; Nucleated Red Blood Cells 0 /100 WBC (0-0); Total Cells Counted 100
[2023-04-04] MEDS ORDERED: ONDANSETRON 4 MG/2 ML VIAL IVP STA (00:52)
[2023-04-04] MEDS ORDERED: MORPHINE SULFATE 4 MG/ML SYRINGE IVP STA (00:52)
[2023-04-04] MEDS ORDERED: FAMOTIDINE 20 MG/2 ML VIAL IV STA (01:22)
[2023-04-04] MEDS ORDERED: methylPREDNISolone SOD SUCCI 125 MG/2 ML VIAL IV STA (01:22)
[2023-04-04] MEDS ORDERED: diphenhydrAMINE 50 MG/ML 1 ML VIAL IVP STA (01:22)
[2023-04-04] MEDS ORDERED: MORPHINE SULFATE 4 MG/ML SYRINGE IV PRN (04:04)
[2023-04-04] MEDS ORDERED: NALOXONE 0.4 MG/ML 1 ML VIAL IV PRN (04:04)
[2023-04-04] MEDS ORDERED: ASPIRIN 81 MG PO STA (04:09)
--- NOTE | 2023-04-04 04:30 | CT ---
CT CHEST FOR PULMONARY EMBOLISM. EXAMINATION TYPE: CT angio chest DATE OF EXAM: 04/04/2023 INDICATION: Chest pain CT DLP: 4-3.9 mGycm, Automated exposure control for dose reduction was used. CONTRAST: Patient injected with 100 mL of Isovue 370. COMPARISON: None TECHNIQUE: CT of the chest is performed on a spiral scan at 2 mm thick sections. Study is performed with intravenous contrast timed for evaluation for pulmonary embolism. This will limit additional po rtions of the evaluation. 3-D MIP images reconstructed by the technologist are reviewed on the compu ter in the coronal and sagittal planes. FINDINGS: No persistent filling defects are evident to suggest an acute pulmonary embolism. No mediastinal or hilar adenopathy enlarged by CT criteria is evident. The ascending aorta diameter at the level of the main pulmonary artery is 3.3 cm. The main pulmonary artery diameter at the bifur cation is 2.6 cm. Coronary artery calcifications noted. Lung windows are clear. Limited CT section through the upper abdomen are unremarkable. IMPRESSIONS: 1. No acute pulmonary embolism.
[2023-04-04] MEDS ORDERED: ATORVASTATIN 80 MG TAB PO STA ×2 (04:41→10:29)
--- NOTE | 2023-04-04 04:41 | P.HPIM ---
History of Present Illness H&P Date: 04/04/23 Patient is a 78-year-old male with a PMH of hypertension and trigeminal neuralgia who presents to the emergency room with complaints of chest discomfort. The patient reports that he developed substernal chest discomfort earlier tonight at around 10 PM, radiating into the neck and back, 5 out of 10 on maximal intensity, not relieved with nitro. Patient reports the pain is somewhat similar but more severe than the pain that brought him to the emergency room. His ago. The patient was evaluated by cardiology during that stay and was recommended for an outpatient stress test. At time of interview, patient reports that he is continuing to have mild substernal chest discomfort. Reports nausea without vomiting. Denied shortness of breath or diaphoresis. He denied cough, fever, chills, lower extremity swelling or pain. In the emergency room, EKG revealed T-wave inversion in lead 3 and [address]/T-wave changes are as reviewed by me. Chest CTA was negative for pulmonary embolism. Laboratory evaluation was remarkable for troponin less than 0.012, leukocytosis of 13.9, hemoglobin 11.9, with a proBNP 382. ED documentation reviewed and case discussed with ED provider. Review of systems: Pertinent positives and negatives as discussed in HPI, a complete review of systems was performed and all other systems are negative. Physical examination: Vital signs reviewed General: non toxic, no distress, appears at stated age, normal weight Derm: no unusual rashes/lesions, warm Head: atraumatic, normocephalic, symmetric Eyes: EOMI, no lid lag, anicteric sclera, pupils equal round reactive to light ENT: Nose and ears atraumatic Neck: No cervical lymphadenopathy, trachea midline, supple Mouth: no lip lesion, mucus membranes moist Cardiovascular: S1S2 reg, no murmur, positive dorsalis pedis pulse bilateral, no edema Lungs: CTA bilateral, no rhonchi, no rales, no accessory muscle use Abdominal: soft, nontender to palpation, no guarding Ext: muscle strength 5 out of 5 in all 4 extremities grossly, no gross muscle atrophy, no contractures, Neuro: CN II-XI grossly intact, no gross focal neuro deficits Psych: Alert, oriented, appropriate affect Assessment: Chest pain with atypical features Leukocytosis, no signs of active infection at this time, likely due to acute distress Chronic conditions: Hypertension, trigeminal neuralgia Imaging: In the emergency room, EKG revealed T-wave inversion in lead 3 and [address]/T-wave changes are as reviewed by me. Chest CTA was negative for pulmonary embolism. Data Review: Laboratory evaluation was remarkable for troponin less than 0.012, leukocytosis of 13.9, hemoglobin 11.9, with a proBNP 382. Plan: Cardiology consulted Cardiac monitoring Trend troponin Status post aspirin Initiate Lipitor DVT prophylaxis: Heparin subcu The patient is admitted with an anticipated less than 2 midnight stay for evaluation of chest pain CODE STATUS: Full Code Discussed with: Patient Anticipated discharge place: Home Past Medical History Past Medical History: Hypertension Additional Past Medical History / Comment(s): Esophegal spasms TMJ History of Any Multi-Drug Resistant Organisms: None Reported Past Surgical History: Cholecystectomy Additional Past Surgical History / Comment(s): Cardiac Stents. hernia Past Psychological History: No Psychological Hx Reported Smoking Status: Never smoker Past Alcohol Use History: None Reported Past Drug Use History: None Reported - Past Family History family Family Medical History: Coronary Artery Disease (CAD) Medications and Allergies Home Medications Medication Instructions Recorded Confirmed Type Albuterol Sulfate [Proair Hfa] 1 - 2 puff INHALATION RT-Q6H PRN 04/24/22 03/28/23 History Aspirin EC [Ecotrin Low Dose] 81 mg PO DAILY 04/24/22 03/28/23 History Atorvastatin Calcium [Lipitor] 40 mg PO DAILY 04/24/22 03/28/23 History Cholecalciferol [Vitamin D3 (25 50 mcg PO DAILY 04/24/22 03/28/23 History Mcg = 1000 Iu)] Isosorbide Mononitrate ER [Imdur] 30 mg PO DAILY 04/24/22 03/28/23 History Metoprolol Succinate (ER) [Toprol 25 mg PO BID 04/24/22 03/28/23 History XL] Nitroglycerin 0.3mg Tabs 0.3 mg SL Q5M PRN 04/24/22 03/28/23 History Omeprazole [PriLOSEC] 20 mg PO DAILY 04/24/22 03/28/23 History allopurinoL [Zyloprim] 100 mg PO DAILY 04/24/22 03/28/23 History amLODIPine [Norvasc] 5 mg PO HS 04/24/22 03/28/23 History Acetaminophen Tab [Tylenol] 500 - 1,000 mg PO Q6HR PRN 03/28/23 03/28/23 History Celecoxib [CeleBREX] 200 mg PO DIRECTED PRN 03/28/23 03/28/23 History Colchicine 0.6 mg PO DAILY PRN 03/28/23 03/29/23 History Gabapentin [Neurontin] 100 mg PO QAM PRN 03/28/23 03/29/23 History Hyoscyamine Sulfate [Levsin] 0.125 mg PO TID PRN 03/28/23 03/29/23 History Vitamin C 600mg 600 mg PO DAILY 03/28/23 03/28/23 History Zolpidem [Ambien] 5 mg PO HS 03/28/23 03/28/23 History carBAMazepine [TEGretol] 100 mg PO BID PRN 03/28/23 03/28/23 History Gabapentin [Neurontin] 200 mg PO HS PRN 03/29/23 03/29/23 History Allergies Allergy/AdvReac Type Severity Reaction Status Date / Time iodine Allergy Unknown Verified 04/04/23 01:32 Physical Exam Vitals: Vital Signs Temp Pulse Resp BP Pulse Ox 04/04/23 04:00 72 8 L 114/62 97 04/04/23 03:00 71 12 114/82 95 04/04/23 02:00 77 16 146/77 98 04/04/23 01:00 83 18 127/75 99 04/04/23 00:00 80 16 150/74 99 04/03/23 23:35 96.9 F L 90 16 156/74 99 Intake and Output 04/03/23 04/03/23 04/04/23 14:59 22:59 06:59 Other: Weight 86.183 kg Results CBC & Chem 7: 04/03/23 23:56 04/03/23 23:56 Labs: Abnormal Lab Results - Last 24 Hours (Table) 04/03/23 04/03/23 Range/Units 23:56 23:56 WBC 13.9 H (3.8-10.6) k/uL RBC 3.20 L (4.30-5.90) m/uL Hgb 11.9 L (13.0-17.5) gm/dL Hct 33.5 L (39.0-53.0) % MCV 104.6 H (80.0-100.0) fL MCH 37.3 H (25.0-35.0) pg RDW 17.0 H (11.5-15.5) % Lymphocytes # (Manual) 6.81 H (1.0-4.8) k/uL Sodium 135 L (137-145) mmol/L Glucose 101 H (74-99) mg/dL
[2023-04-04] MEDS ORDERED: ALPRAZolam 0.25 MG TAB PO STA (05:16)
[2023-04-04] MEDS ORDERED: ISOSORBIDE MONONITRATE ER 30 MG TAB.ER.24H PO STA (05:17)
[2023-04-04] MEDS: HEPARIN SODIUM,PORCINE 5,000 UNIT/ML 1 ML VIAL SQ SCH ×2 (08:39→16:01)
[2023-04-04] MEDS ORDERED: ALBUTEROL NEBULIZED 2.5 MG/3 ML INHALATION PRN (09:27)
[2023-04-04] MEDS ORDERED: ALPRAZolam 0.5 MG TAB PO PRN (10:29)
[2023-04-04] MEDS ORDERED: ASPIRIN 325 MG TAB PO STA (10:29)
[2023-04-04] MEDS ORDERED: NITROGLYCERIN SL TABS 0.4 MG TAB SUBLINGUAL PRN (10:29)
[2023-04-04] MEDS ORDERED: ALPRAZolam 0.25 MG TAB PO PRN (10:29)
--- NOTE | 2023-04-04 11:03 | P.CRDCN ---
History of Present Illness History of present illness: HISTORY OF PRESENT ILLNESS: This is a 78-year-old male with a past medical history significant for hypertension, hyperlipidemia, and coronary artery disease with previous stenting of the RCA in 2019 and also stenting in 2017 (vessel unknown). Patient resides in [place] and follows with a manager of information in [place]. We have been asked to see the patient in consultation for chest pain. Patient examined at the bedside. The patient was recently admitted to the hospital on 03/29/2023 secondary to chest pain. He was evaluated at that time and an acute coronary event has been ruled out. He was instructed to follow-up with his manager of information in [place] for a stress test. The patient states the following day after being discharged he began to have chest pain at night. He states he woke up around 3:00 in the morning with chest discomfort. He states that he took nitro which did help his chest pain however it took a while to work. He states yesterday evening he was outside working in the yard when he began to have pain in his back. He states the pain then went into his shoulders, neck, and jaw. He reports having chest pain that felt like chest pressure. He also reports feeling his heart racing at that time. He states that he took 2 nitro at home without much relief so he came to the emergency room for further evaluation. At the time of examination, the patient denies any chest pain or pressure. He denies any shortness of breath. * EKG reveals sinus mechanism with no signs of acute ischemia * Chest CTA: Negative for pulmonary embolism * Laboratory data: WBC 13.9. Hemoglobin 11.9. Platelet count 253. Sodium 135. Potassium 3.9. BUN 18. Creatinine 0.92. Troponin negative 3. ProBNP 382. * Current home cardiac medications include aspirin 81 mg daily, atorvastatin 40 mg daily, Imdur 30 mg daily, metoprolol succinate 25 mg twice a day * Most recent echocardiogram obtained on 03/30/2023 revealed ejection fraction 55% with mild tricuspid regurgitation REVIEW OF SYSTEMS: At the time of my exam: CONSTITUTIONAL: Denies fever or chills. HEENT: Denies blurred vision, vision changes, or eye pain. Denies hemoptysis CARDIOVASCULAR: Denies chest pain. Denies orthopnea. Denies PND. Denies palpitations RESPIRATORY: Denies shortness of breath. GASTROINTESTINAL: Denies abdominal pain. Denies nausea or vomiting. HEMATOLOGIC: Denies bleeding disorders. GENITOURINARY: Denies any blood in urine. SKIN: Denies pruitis. Denies rash. PHYSICAL EXAM: VITAL SIGNS: Reviewed. GENERAL: Well-developed in no acute distress. HEENT: Head is normocephalic. Pupils are equal, round. Sclerae anicteric. Mucous membranes of the mouth are moist. Neck supple. No JVD or thyromegaly LUNGS: Respirations even and unlabored. Lungs essentially clear to auscultation bilaterally. HEART: Regular rate and rhythm. S1 and S2 heard. ABDOMEN: Soft. Nondistended. Nontender. EXTREMITIES: Normal range of motion. No clubbing or cyanosis. Peripheral pulses intact. No lower extremity edema NEUROLOGIC: Awake and alert. Oriented x 3. ASSESSMENT: Unstable angina, patient with 3 episodes of CP in 1 week and second admission for CP Coronary artery disease with previous stenting of the RCA in 2019 and also in 2017 (vessel unknown) Hypertension Hyperlipidemia History of neuropathy PLAN: No need to repeat echocardiogram as this was performed on 03/30/2023 Resume home cardiac medications Increase Imdur to 60 mg daily Recommend cardiac catheterization due to recurrent chest pain and second admission for chest pain. Patient agreeable. Patient to undergo cardiac catheterization today with Dr. Singer Further recommendations pending patient's course Patient to follow-up post discharge with his primary manager of information in [place] Nurse practitioner note has been reviewed by physician. Signing provider agrees with the documented findings, assessment, and plan of care. Past Medical History Past Medical History: Coronary Artery Disease (CAD), Hypertension Additional Past Medical History / Comment(s): Esophegal spasms TMJ History of Any Multi-Drug Resistant Organisms: None Reported Past Surgical History: Cholecystectomy Additional Past Surgical History / Comment(s): Cardiac Stents x2. hernia Past Psychological History: No Psychological Hx Reported Smoking Status: Never smoker Past Alcohol Use History: None Reported Past Drug Use History: None Reported - Past Family History family Family Medical History: Coronary Artery Disease (CAD) Medications and Allergies Home Medications Medication Instructions Recorded Confirmed Type Albuterol Sulfate [Proair Hfa] 1 - 2 puff INHALATION RT-Q6H PRN 04/24/22 04/04/23 History Aspirin EC [Ecotrin Low Dose] 81 mg PO DAILY 04/24/22 04/04/23 History Atorvastatin Calcium [Lipitor] 40 mg PO DAILY 04/24/22 04/04/23 History Cholecalciferol [Vitamin D3 (25 50 mcg PO DAILY 04/24/22 04/04/23 History Mcg = 1000 Iu)] Isosorbide Mononitrate ER [Imdur] 30 mg PO DAILY 04/24/22 04/04/23 History Metoprolol Succinate (ER) [Toprol 25 mg PO BID 04/24/22 04/04/23 History XL] Nitroglycerin 0.3mg Tabs 0.3 mg SL Q5M PRN 04/24/22 04/04/23 History Omeprazole [PriLOSEC] 20 mg PO DAILY 04/24/22 04/04/23 History allopurinoL [Zyloprim] 100 mg PO DAILY 04/24/22 04/04/23 History amLODIPine [Norvasc] 5 mg PO HS 04/24/22 04/04/23 History Acetaminophen Tab [Tylenol] 500 - 1,000 mg PO Q6HR PRN 03/28/23 04/04/23 History Celecoxib [CeleBREX] 200 mg PO DIRECTED PRN 03/28/23 04/04/23 History Gabapentin [Neurontin] 100 mg PO TID PRN 03/28/23 04/04/23 History Hyoscyamine Sulfate [Levsin] 0.125 mg PO TID PRN 03/28/23 04/04/23 History Vitamin C 600mg 600 mg PO DAILY 03/28/23 04/04/23 History Zolpidem [Ambien] 5 mg PO HS PRN 03/28/23 04/04/23 History Allergies Allergy/AdvReac Type Severity Reaction Status Date / Time iodine Allergy Unknown Verified 04/04/23 01:32 Physical Exam Vitals: Vital Signs Temp Pulse Pulse Resp BP BP Pulse Ox 04/04/23 05:02 97.8 F 89 16 126/64 100 04/04/23 04:00 72 8 L 114/62 97 04/04/23 03:00 71 12 114/82 95 04/04/23 02:00 77 16 146/77 98 04/04/23 01:00 83 18 127/75 99 04/04/23 00:00 80 16 150/74 99 04/03/23 23:35 96.9 F L 90 16 156/74 99 Intake and Output 04/03/23 04/04/23 04/04/23 22:59 06:59 14:59 Other: Weight 86.183 kg Results 04/03/23 23:56 04/03/23 23:56 Cardiac Enzymes 04/03/23 04/03/23 04/04/23 Range/Units 23:56 23:56 06:24 AST 53 (17-59) U/L Troponin I <0.012 <0.012 (0.000-0.034) ng/mL Coagulation 04/03/23 Range/Units 23:56 PT 9.8 (9.0-12.0) sec APTT 24.0 (22.0-30.0) sec CBC 04/03/23 Range/Units 23:56 WBC 13.9 H (3.8-10.6) k/uL RBC 3.20 L (4.30-5.90) m/uL Hgb 11.9 L (13.0-17.5) gm/dL Hct 33.5 L (39.0-53.0) % Plt Count 253 (150-450) k/uL Comprehensive Metabolic Panel 04/03/23 Range/Units 23:56 Sodium 135 L (137-145) mmol/L Potassium 3.9 (3.5-5.1) mmol/L Chloride 100 (98-107) mmol/L Carbon Dioxide 26 (22-30) mmol/L BUN 18 (9-20) mg/dL Creatinine 0.92 (0.66-1.25) mg/dL Glucose 101 H (74-99) mg/dL Calcium 9.6 (8.4-10.2) mg/dL AST 53 (17-59) U/L ALT 46 (4-49) U/L Alkaline Phosphatase 88 (38-126) U/L Total Protein 7.2 (6.3-8.2) g/dL Albumin 4.5 (3.5-5.0) g/dL Current Medications Generic Name Dose Route Start Last Admin Trade Name Freq PRN Reason Stop Dose Admin Heparin Sodium (Porcine) 5,000 unit 04/04/23 08:00 Heparin Sodium,Porcine 5,000 Unit/Ml 1 Ml Vial SQ Q8HR [place] Morphine Sulfate 4 mg 04/04/23 04:04 Morphine Sulfate 4 Mg/Ml Syringe IV Q4HR PRN Severe Pain (Scale 7 to 10) Naloxone HCl 0.2 mg 04/04/23 04:04 Naloxone 0.4 Mg/Ml 1 Ml Vial IV Q2M PRN Opioid Reversal Intake and Output 04/03/23 04/04/23 04/04/23 22:59 06:59 14:59 Other: Weight 86.183 kg 04/03/23 23:56 04/03/23 23:56
[2023-04-04] MEDS ORDERED: fentaNYL (PF) 50 MCG/ML 2 ML AMP ONE (11:07)
[2023-04-04] MEDS ORDERED: LIDOCAINE 1% INJ 10MG/ML (20 ML MDV) ONE (11:07)
[2023-04-04] MEDS ORDERED: VERAPAMIL 2.5 MG/ML 2 ML AMP ONE (11:07)
[2023-04-04] MEDS ORDERED: HEPARIN SODIUM 1,000 UN/ML (10ML VL) ONE (11:07)
[2023-04-04] MEDS ORDERED: SODIUM CHLORIDE 0.9% 1,000 ML IV ONE (11:15)
[2023-04-04] MEDS ORDERED: diphenhydrAMINE 50 MG/ML 1 ML VIAL ONE ×2 (11:17→11:42)
[2023-04-04] MEDS ORDERED: MIDAZOLAM 2 MG/2 ML VIAL IVP ONE ×2 (11:41)
[2023-04-04] MEDS ORDERED: fentaNYL (PF) 50 MCG/ML 2 ML AMP IVP ONE ×2 (11:41)
[2023-04-04] MEDS ORDERED: methylPREDNISolone SOD SUCCI 125 MG/2 ML VIAL ONE (11:43)
[2023-04-04] MEDS ORDERED: LIDOCAINE 1% INJ 10MG/ML (5 ML VIAL-PF) SQ ONE ×3 (11:43→11:46)
[2023-04-04] MEDS ORDERED: diphenhydrAMINE 50 MG/ML 1 ML VIAL IVP ONE ×3 (11:44)
[2023-04-04] MEDS ORDERED: methylPREDNISolone SOD SUCCI 125 MG/2 ML VIAL IVP ONE ×2 (11:45)
[2023-04-04] MEDS ORDERED: VERAPAMIL SYRINGE (5 MG/10 ML) INTRAARTER ONE (11:47)
[2023-04-04] MEDS ORDERED: HEPARIN SODIUM 1,000 UN/ML (10ML VL) IVP ONE ×2 (11:49)
[2023-04-04] MEDS ORDERED: IOPAMIDOL-370 100ML BTL INJ ONE (11:56)
[2023-04-04] MEDS: SODIUM CHLORIDE 0.9% 1,000 ML in EMPTY BAG 1 BAG IV SCH ×2 (12:19→21:04)
[2023-04-04] MEDS ORDERED: RX INFO: IV CONTRAST WAS GIVEN 1 EACH MISC MISCELLANE PRN (12:20)
--- NOTE | 2023-04-04 12:20 | PN ---
PROGRESS NOTE INDICATION: Unstable angina. PROCEDURE NOTE: After obtaining informed consent, left heart catheterization and coronary angiogram were performed via the right radial artery using standard Niya catheters. The patient tolerated the procedure well without any obvious immediate complications. The patient received moderate conscious sedation. Total sedation time was 15 minutes. A TR band was used for hemostasis. Right radial artery access was obtained using Seldinger technique. 6-Italian sheath was placed. Catheters and wires were floated into the ascending aorta under fluoroscopic guidance. The patient received verapamil and heparin per protocol. FINDINGS: HEMODYNAMICS: 1. Left ventricular end-diastolic pressure is 18 mm. There is no significant gradient across the aortic valve. 2. Left ventriculogram: Left ventriculogram is not performed. ANGIOGRAPHIC DATA: Right coronary artery: Right coronary artery is a large dominant vessel and previously, the patient had extensive stenting from proximal to the distal RCA. The stent appears patent. There is mild nonobstructive disease involving the distal RCA. The PDA and PLV seemed free of significant disease. Left main coronary artery is a short vessel and is free of stenosis. The entire left coronary system appears heavily calcified, especially the LAD. Circumflex coronary artery is a nondominant vessel. There is mild nonobstructive disease involving the OM branch. LAD appears heavily calcified with a moderate area of atherosclerotic block extending from proximal to the mid LAD, but there are no focal significant stenotic lesions. CONCLUSIONS: 1. Patent stent within the right coronary artery. 2. Heavily calcified vessels. 3. Moderate atherosclerotic plaque that is heavily calcified involving LAD. PLAN: I reviewed angiographic data with the patient and advised medical therapy at this time. We will watch him overnight, and discharge him home tomorrow. MMODL / IJN: [id number] /
[2023-04-04] MEDS: GABAPENTIN 100 MG CAP PO SCH ×2 (16:01→20:48)
[2023-04-04] MEDS ORDERED: ZOLPIDEM 5 MG TAB PO PRN (20:46)
[2023-04-04] MEDS: METOPROLOL SUCCINATE (ER) 25 MG TAB.ER.24H PO SCH (20:48)
[2023-04-04] MEDS ORDERED: amLODIPine 5 MG TAB PO SCH (21:00)
[2023-04-05] MEDS: HEPARIN SODIUM,PORCINE 5,000 UNIT/ML 1 ML VIAL SQ SCH ×2 (01:26→08:45)
[2023-04-05] MEDS ORDERED: HEPARIN SODIUM,PORCINE 10,000 UNIT in SODIUM CHLORIDE 0.9% 1,000 ML IRRIGATION PRN (07:00)
[2023-04-05] MEDS ORDERED: HEPARIN SODIUM,PORCINE (1 ML) 2,500 UNIT in SODIUM CHLORIDE 0.9% 250 ML IRRIGATION PRN (07:00)
[2023-04-05] MEDS ORDERED: polyethylene glycoL 3350 17 GM POWD.PACK PO STA (08:18)
[2023-04-05] MEDS: METOPROLOL SUCCINATE (ER) 25 MG TAB.ER.24H PO SCH (08:45)
[2023-04-05] MEDS: GABAPENTIN 100 MG CAP PO SCH (08:45)
[2023-04-05] MEDS: SODIUM CHLORIDE 0.9% 1,000 ML in EMPTY BAG 1 BAG IV SCH (08:47)
[2023-04-05 08:56] VITALS: BP 93/54; PULSE 78; RESP 16; TEMP 98.1
[2023-04-05] MEDS ORDERED: ASCORBIC ACID 500 MG TAB PO SCH (09:00)
[2023-04-05] MEDS ORDERED: ASPIRIN 81 MG PO SCH (09:00)
[2023-04-05] MEDS ORDERED: ISOSORBIDE MONONITRATE ER 30 MG TAB.ER.24H PO SCH (09:00)
[2023-04-05] MEDS ORDERED: PANTOPRAZOLE 40 MG TABLET PO SCH (09:00)
[2023-04-05] MEDS ORDERED: allopurinoL 100 MG TAB PO SCH (09:00)
[2023-04-05] MEDS ORDERED: CHOLECALCIFEROL 25 MCG (1000 IU) TABLET PO SCH (09:00)
[2023-04-05] MEDS ORDERED: ATORVASTATIN 40 MG TAB PO SCH (09:00)
[2023-04-05] MEDS ORDERED: ISOSORBIDE MONONITRATE ER 60 MG TAB.ER.24H PO SCH (09:00)
[2023-04-05 09:07] LABS: Basophils # (A) 0.02 X 10*3/uL (0.00-0.10); Basophils % (A) 0.1 %; Eosinophils # (A) 0 X 10*3/uL (0.04-0.35); Eosinophils % (A) 0 %; HCT 33.2 % (39.6-50.0); HGB 11.5 d/dL (13.0-17.0); Lymphocytes # (A) 2.95 X 10*3/uL (0.90-5.00); Lymphocytes % (A) 16.9 %; MCH 36.1 pg (27.0-32.0); MCHC 34.6 d/dL (32.0-37.0); MCV 104.1 FL (80.0-97.0); Mean Platelet Volume 9.9 FL (9.5-12.2); Monocytes # (A) 0.77 X 10*3/uL (0.20-1.00); Monocytes % (A) 4.4 %; NRBC Per 100 WBC 0 X 10*3/uL (0.00-0.01); Neutrophils # (A) 13.68 X 10*3/uL (1.80-7.70); Neutrophils % (A) 78.2 %; Platelet Count 257 X 10*3/uL (140-440); RBC 3.19 X 10*6/uL (4.40-5.60); RDW 16.9 % (11.5-14.5); WBC 17.49 X 10*3/uL (4.50-10.00)
[2023-04-05 09:14] LABS: BUN/Creat Ratio 19.56 Ratio (12.00-20.00); Blood Urea Nitrogen 17.6 mg/dL (9.0-27.0); Calcium 9.4 mg/dL (8.7-10.3); Carbon Dioxide 24.6 mmol/L (21.6-31.8); Chloride 102 mmol/L (96-109); Glucose 125 mg/dL (70-110); Potassium 4.2 mmol/L (3.5-5.5); Sodium 137 mmol/L (135-145)
--- NOTE | 2023-04-05 11:17 | P.DS ---
Providers Date of admission: 04/04/23 04:04 Expected date of discharge: 04/05/23 Attending physician: Rebecca Templeton MD Consults: 04/04/23 04:04 Consult Physician Urgent Consulting Provider: [facility] Consult Reason/Comments: chest pain, hx ascad Do you want consulting provider notified?: Yes Primary care physician: Stated None Hospital Course: Discharge Diagnosis: Chest pain, acute coronary event ruled out. Leukocytosis, increasing secondary to steroid prep for iodine used during cardiac cath- no fevers Anemia, mild, appears chronic in nature Hypertension Chronic lower back pain with neuropathy History of trigeminal neuralgia History of coronary artery disease next Hx esophageal spasms Hospital Course: Patient is a 78-year-old male with history of hypertension, trigeminal neuralgia, esophageal spasm, and coronary artery disease status post stenting who presented to the emergency department with complaints of chest discomfort. Of note the patient was initially here 03/28/23 through 03/31/23 for similar complaints. During that hospitalization he was seen by cardiology. They recommended an echocardiogram which was completed and showed no signs of wall motion abnormality and ejection fraction of 55%. He was also seen by neurology due to peripheral neuropathy with increasing numbness. During that hospital stay he underwent an MRI of the cervical spine which showed no evidence of disc herniation or significant spinal canal or neural foraminal stenosis. It was felt that he had an acute worsening of his chronic neuropathy and outpatient follow-up with appropriate. He was also here by cardiology for discharge with outpatient follow-up. During this hospital stay his troponins remained negative. He was again seen by cardiology. He underwent cardiac catheterization which showed a patent stent within the RCA and heavily calcified vessels with moderate atherosclerotic plaque that is heavily calcified involving the LAD and medical therapy was warranted. He was monitored overnight and had no additional chest pain. He also underwent CT of the chest which showed no evidence of acute pulmonary embolism the ascending aorta diameter at the level of the pulmonary arteries 3.3 and the lung windows were clear. Patient seen and examined at bedside. He denies any recurrent chest pain. We discussed that he needs to continue to look for alternative etiologies of his chest pain. We discussed seeing a keg inspector to evaluate possible gastric ulcer and a neurologist to further evaluate his neuropathy. He reports that he typically lives in [place] and he is planning on going back as soon as possible. He will obtain copies of his record for his outpatient service observer. I also informed him to start at [facility] my chart so that his family doctor can have the rest of his records. He is aware of his test results including cardiac cath and CTA of the chest. He ensures me that he will follow-up once he returns to [place]. He was noted to have some low blood pressures here and therefore his Norvasc was decreased from 5-2.5 mg at night. Patient was determined stable for discharge. Vital signs reviewed and stable. General: nontoxic, no distress, appears at stated age Cardiovascular: S1S2 reg, no murmur, positive posterior tibial pulse bilateral, Lungs: CTA bilateral, no rhonchi, no rales , no accessory muscle use Abdominal: soft, nontender to palpation, no guarding, no appreciable organomegaly Ext: no gross muscle atrophy, no edema b/l lower extremities, no contractures Neuro: CN II-XI grossly intact, no focal neuro deficits Psych: Alert, oriented, appropriate affect A total of 35 minutes of time were spent preparing this complex discharge summa ry. Patient was discharged on 04/05/23. This dictation was prepared using [employer] voice recognition software. Though every attempt is made to correct errors during dictation some may still exist. Patient Condition at Discharge: Stable Plan - Discharge Summary New Discharge Prescriptions: Continue Omeprazole [PriLOSEC] 20 mg PO DAILY Albuterol Sulfate [Proair Hfa] 1 - 2 puff INHALATION RT-Q6H PRN PRN Reason: Shortness Of Breath allopurinoL [Zyloprim] 100 mg PO DAILY Metoprolol Succinate (ER) [Toprol XL] 25 mg PO BID Atorvastatin Calcium [Lipitor] 40 mg PO DAILY Cholecalciferol [Vitamin D3 (25 Mcg = 1000 Iu)] 50 mcg PO DAILY Gabapentin [Neurontin] 100 mg PO TID PRN PRN Reason: NERVE PAIN Vitamin C 600mg 600 mg PO DAILY Zolpidem [Ambien] 5 mg PO HS PRN PRN Reason: Insomnia Isosorbide Mononitrate ER [Imdur] 30 mg PO DAILY Nitroglycerin 0.3mg Tabs 0.3 mg SL Q5M PRN PRN Reason: Chest Pain Aspirin EC [Ecotrin Low Dose] 81 mg PO DAILY Acetaminophen Tab [Tylenol] 500 - 1,000 mg PO Q6HR PRN PRN Reason: Fever And/ Or Pain Celecoxib [CeleBREX] 200 mg PO DIRECTED PRN PRN Reason: Pain Hyoscyamine Sulfate [Levsin] 0.125 mg PO TID PRN PRN Reason: Gi Upset Changed amLODIPine [Norvasc] 2.5 mg PO HS #30 tab Discharge Medication List Albuterol Sulfate [Proair Hfa] 1 - 2 puff INHALATION RT-Q6H PRN 04/24/22 [History] Aspirin EC [Ecotrin Low Dose] 81 mg PO DAILY 04/24/22 [History] Atorvastatin Calcium [Lipitor] 40 mg PO DAILY 04/24/22 [History] Cholecalciferol [Vitamin D3 (25 Mcg = 1000 Iu)] 50 mcg PO DAILY 04/24/22 [History] Isosorbide Mononitrate ER [Imdur] 30 mg PO DAILY 04/24/22 [History] Metoprolol Succinate (ER) [Toprol XL] 25 mg PO BID 04/24/22 [History] Nitroglycerin 0.3mg Tabs 0.3 mg SL Q5M PRN 04/24/22 [History] Omeprazole [PriLOSEC] 20 mg PO DAILY 04/24/22 [History] allopurinoL [Zyloprim] 100 mg PO DAILY 04/24/22 [History] Acetaminophen Tab [Tylenol] 500 - 1,000 mg PO Q6HR PRN 03/28/23 [History] Celecoxib [CeleBREX] 200 mg PO DIRECTED PRN 03/28/23 [History] Gabapentin [Neurontin] 100 mg PO TID PRN 03/28/23 [History] Hyoscyamine Sulfate [Levsin] 0.125 mg PO TID PRN 03/28/23 [History] Vitamin C 600mg 600 mg PO DAILY 03/28/23 [History] Zolpidem [Ambien] 5 mg PO HS PRN 03/28/23 [History] amLODIPine [Norvasc] 2.5 mg PO HS #30 tab 04/05/23 [Rx] Follow up Appointment(s)/Referral(s): None,Stated [Primary Care Provider] - 1-2 days Activity/Diet/Wound Care/Special Instructions: Activity: As tolerated Diet: Heart healthy Special Instructions: Please follow-up with your Primary care physician, keg inspector, service observer in [place]. Your morning blood pressures have been low so your Norvasc was decreased to 2.5 mg daily. (1/2 of your pill at home). THank you for trusting us with your care. We wish you well on your journey to better health Discharge Disposition: HOME SELF-CARE
--- NOTE | 2023-04-05 13:23 | PN ---
PROGRESS NOTE SUBJECTIVE: Juan is a 78-year-old gentleman with history of coronary artery disease, status post prior angioplasty of right coronary artery, who presented to hospital with unstable angina. He underwent cardiac catheterization that revealed a patent stent within the right coronary artery with a heavily calcified atherosclerotic plaque in the LAD. He is doing well this morning and is on optimal medical therapy with aspirin, Norvasc, Toprol, Imdur. PHYSICAL EXAMINATION: GENERAL: Comfortable at rest. VITAL SIGNS: Stable. NECK: There is no jugular venous distention. Carotid upstroke is normal. There is no bruit. CHEST: Reveals good air entry bilaterally. HEART: Reveals first and second heart sounds. No gallop. No murmur. ABDOMEN: Soft, nontender. EXTREMITIES: Do not reveal any edema. Peripheral pulses are felt. LABORATORY DATA: Labs show that the hemoglobin is 11.5, potassium is 4.2, creatinine is 0.9. Troponins are negative. ASSESSMENT: Unstable angina, status post catheterization, and advised medical therapy. PLAN: The patient is doing well. He will continue current medications. I will decrease the dose of amlodipine as his blood pressure is soft. He will follow up with his own government documents librarian upon discharge in [place]. MMODL / IJN: [id number] /
--- NOTE | 2023-04-09 10:22 | CC ---
CARDIAC CATHETERIZATION REPORT INDICATION: Unstable angina. PROCEDURE NOTE: After obtaining informed consent, left heart catheterization and coronary angiogram were performed via the right radial artery using standard [place]ya catheters. The patient tolerated the procedure well without any obvious immediate complications. The patient received moderate conscious sedation. Total sedation time was 15 minutes. Right radial artery access was obtained using Seldinger technique, 6-[place] sheath was placed. Catheters and wires were floated into the ascending aorta under fluoroscopic guidance. FINDINGS: 1. Hemodynamics: Left ventricular end-diastolic pressure is 18 mm. There is no significant gradient across the aortic valve. 2. Left ventriculogram: Left ventriculogram is not performed. 3. Angiographic data: a.Right coronary artery: Right coronary artery was previously stented. He had extensive stents extending all the way from proximal to distal right coronary artery. Stent appears patent with mild nonobstructive disease. b.Left main coronary artery appears calcified, but is free of stenosis. Divides into circumflex coronary artery and left anterior descending coronary artery. c. 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 d.Proximal LAD shows a long segment of moderate calcified atherosclerotic plaque. CONCLUSIONS: 1. Patent stent within the right coronary artery. 2. Moderate nonobstructive disease involving proximal LAD. PLAN: I reviewed angiographic data with the patient and told him that his management is going to be in the form of medical therapy at this time. MMODL / IJN: [id number] /
== END 2023-04-05 10:45 | disposition home or self-care (01) ==
LOC: EC 23:34 → 6NMEDSUR 04-04 04:04
PROVIDERS: ADMIT Internal Medicine; ATTEND Internal Medicine
DX: R07.89 Other chest pain (principal); I25.10 Atherosclerotic heart disease of native coronary artery without angina pectoris; K22.4 Dyskinesia of esophagus; I10 Essential (primary) hypertension; I07.1 Rheumatic tricuspid insufficiency; G50.0 Trigeminal neuralgia; M26.609 Unspecified temporomandibular joint disorder, unspecified side; D72.829 Elevated white blood cell count, unspecified; T38.0X5A Adverse effect of glucocorticoids and synthetic analogues, initial encounter; R11.0 Nausea; E78.5 Hyperlipidemia, unspecified; R00.0 Tachycardia, unspecified; G62.9 Polyneuropathy, unspecified; D64.9 Anemia, unspecified; G89.29 Other chronic pain; M54.50 Low back pain, unspecified; Z79.82 Long term (current) use of aspirin; Z79.899 Other long term (current) drug therapy; Z91.048 Other nonmedicinal substance allergy status; Z90.49 Acquired absence of other specified parts of digestive tract; Z95.5 Presence of coronary angioplasty implant and graft; Z98.890 Other specified postprocedural states; Z82.49 Family history of ischemic heart disease and other diseases of the circulatory system
CPT/HCPCS: 96372; 96374; 96375; 99285; 36415; 93005; 93458; 83880; 80053; 80048; 83690; 83735; 84484; 85025 ×2; 85610; 85730; 71275; G0378 ×2; C1769; C1894; J2250; J2270; J1200; J1644 ×3; J2930; J2405; J2001; J3010; Q9967